=== PATIENT | female | born 1930 | race Hispanic/Latino ===

== ENCOUNTER 2017-09-30 17:25 | Inpatient (IN) | payer BC, MEDICARE ==
[2017-09-30 17:25] VITALS: PULSE 64; BMI 32.6
--- NOTE | 2017-09-30 18:23 | ED PDOC ---
Arrival/HPI - General Historian: Patient, Family EM Caveat: Dementia - History of Present Illness Time/Duration: < week Symptom Onset: Sudden Symptom Course: Unchanged Quality: Other Severity Level: Moderate <Neal Whatley - Last Filed: 09/30/17 18:33> <Ignacio Martinez - Last Filed: 09/30/17 18:49> - General Chief Complaint: GI Problem Time Seen by Provider: 09/30/17 17:26 - History of Present Illness Narrative History of Present Illness (Text): 09/30/17 18:22 This is an 87 yo female with past medical hx of HTN, pulmonary hypertension, renal cancer, mitral regurgitation, dementia, chronic constipation, hemorrhoids , presenting with chief complaint of bloody stools. This has been going for 3 days. Pt is on blood thinners. She is on pradaxa. Pt is accompanied with son and daughter who provide most of hx since pt has some dementia. This has never happened before. Reports blood is light red in color, not very voluminous, does not fill toilet bowl. It is with fully formed stool, no diarrhea. It has been happening every time pt goes to have BM. Of note, pt has chronic constipation secondary to narrowed rectum and has had sx in past to dilate rectum. In past few days, pt has used numerous suppositories. Pt currently feels well and has no complaints. Family did take pt in to see PMD Dr. Rizo earlier today who performed rectal exam. Exam showed black tarry stools. PMH: HTN, dementia, renal cancer, chronic constipation, mitral regurg, hemorrhoids PSH: rectal dilation Allergies: sulfa FH: non contributory Home meds: digoxin, lasix, pradaxa, terazosin, potassium, edarbi, nisoldipine, namenda, citalopram. Social hx: former smoker. denies drinking and drug use. 09/30/17 18:23 09/30/17 18:33 (Neal Whatley) Past Medical History - Provider Review Nursing Documentation Reviewed: Yes - Travel History Have you recently traveled outside [place] w/in the past 3 mons?: No - Tetanus Immunization Tetanus Immunization: Unknown - Reproductive Menopause: Yes - Cardiac Hx Cardiac Disorders: Yes (enlarged heart) Hx Cardiac Arrhythmia: Yes Hx Heart Murmur: Yes Hx Hypertension: Yes - Pulmonary Hx Respiratory Disorders: No - Neurological Hx Neurological Disorder: Yes Hx Dementia: Yes Hx Transient Ischemic Attacks (TIA): Yes - HEENT Hx HEENT Disorder: Yes Hx Blind: Yes - Renal Other/Comment: cyst on left kidney. Only has left kidney - Endocrine/Metabolic Hx Endocrine Disorders: No - Hematological/Oncological Hx Anemia: Yes Hx Cancer: Yes (kidney) - Integumentary Hx Dermatological Disorder: No - Musculoskeletal/Rheumatological Hx Musculoskeletal Disorders: (carpal tunnel both hands) Hx Arthritis: Yes (both legs, left more than right) Hx Falls: No - Gastrointestinal Hx Constipation: Yes (had 3 hemorrhoid sx's which left pt with small anus, needs to take laxative) Hx Diverticulitis: Yes Hx Hemorrhoids: Yes - Genitourinary/Gynecological Hx Genitourinary Disorders: Yes (bladder problems since a teenager) - Psychiatric Hx Anxiety: Yes Hx Depression: Yes Hx Substance Use: No - Surgical History Hx Appendectomy: Yes Other/Comment: right kidney removed. - Suicidal Assessment Feels Threatened In Home Enviroment: No <Neal Whatley - Last Filed: 09/30/17 18:33> Family/Social History - Physician Review Nursing Documentation Reviewed: Yes Family/Social History: Unknown Family HX Smoking Status: Former Smoker Hx Alcohol Use: No Hx Substance Use: No <Neal Whatley - Last Filed: 09/30/17 18:33> Allergies/Home Meds <Neal Whatley - Last Filed: 09/30/17 18:33> <Ignacio Martinez - Last Filed: 09/30/17 18:49> Allergies/Adverse Reactions: Allergies Sulfa (Sulfonamide Antibiotics) Allergy (Verified 09/30/17 17:57) SWELLING Home Medications: Home Meds Medication Instructions Recorded Confirmed Azilsartan Medoxomil [Edarbi] 80 mg PO DAILY 09/30/17 09/30/17 Citalopram Hydrobromide 20 mg PO DAILY 09/30/17 09/30/17 [Citalopram HBr] Dabigatran [Pradaxa] 150 mg PO BID 09/30/17 09/30/17 Digoxin [Digitek] 125 mcg PO DAILY 09/30/17 09/30/17 Furosemide [Lasix] 20 mg PO BID 09/30/17 09/30/17 Memantine [Namenda] 21 mg PO DAILY 09/30/17 09/30/17 Nisoldipine 8.5 mg PO DAILY 09/30/17 09/30/17 Potassium Chloride [Klor-Con 10] 10 meq PO DAILY 09/30/17 09/30/17 Terazosin [Hytrin] 2 mg PO TID 09/30/17 09/30/17 Review of Systems - Review of Systems Constitutional: absent: Weight Change, Fevers, Night Sweats Eyes: absent: Vision Changes, Photophobia ENT: absent: Hearing Changes, Tinnitus Respiratory: absent: SOB, Cough Cardiovascular: absent: Chest Pain, Palpitations Gastrointestinal: Stool Changes, Constipation. absent: Abdominal Pain Genitourinary Female: absent: Dysuria, Frequency Musculoskeletal: absent: Arthralgias, Back Pain Skin: absent: Rash, Pruritis Neurological: Dizziness. absent: Headache Endocrine: absent: Diaphoresis, Polyuria Hemo/Lymphatic: absent: Adenopathy, Easy Bleeding Psychiatric: absent: Anxiety, Depression <Neal Whatley - Last Filed: 09/30/17 18:33> Physical Exam Vital Signs Reviewed: Yes Mental Status: No: Alert and Oriented X 3 (AO x 2) - Systems Exam Head: Present: Atraumatic, Normocephalic Pupils: Present: PERRL Extroacular Muscles: Present: EOMI Neck: Present: Normal Range of Motion. No: JVD Respiratory/Chest: Present: Clear to Auscultation. No: Respiratory Distress Cardiovascular: Present: Murmurs, Normal S1, S2 Abdomen: No: Tenderness, Distention, Peritoneal Signs, Rebound, Guarding Rectal: Present: Occult Blood (positive stool guaiac). No: Hemorrhoids Upper Extremity: Present: Normal Inspection. No: Cyanosis, Edema Lower Extremity: Present: Normal Inspection. No: Edema Neurological: Present: CN II-XII Intact, Speech Normal Skin: Present: Warm, Dry Psychiatric: Present: Alert. No: Oriented x 3 <Neal Whatley - Last Filed: 09/30/17 18:33> Vital Signs Temp Pulse Resp BP Pulse Ox 09/30/17 17:46 97.6 F 60 18 149/67 97 Medical Decision Making <Neal Whatley - Last Filed: 09/30/17 18:33> <Ignacio Martinez - Last Filed: 09/30/17 18:49> ED Course and Treatment: 09/30/17 18:36 This is a 87 yo female presenting with bloody stool/melena -differential includes lower GI bleed, use of blood thinners -will order CBC, CMP -EKG -PT/PTT -protonix IV -NS 80 cc/hr -NPO -reassess (Neal Whatley) 09/30/17 18:39 87 yo female with presents with bloody stools. Agree with resident history and physical, assessment and plan. -- Labs -- EKG -- IVF Rectal performed by resident with my supervisions. Cask Maker Cassia. Guiack positive. No hemorrohids. Black stools. Prior to arrival patient was endorsed to me by Dr. Montes from Dr. Rizo's office. Patient's GI doctor does not come to [place]. Will sign out to Dr. Hung to f/u labs, reevaluate and disposition. (Ignacio Martinez) - Medication Orders Current Medication Orders: Sodium Chloride (Sodium Chloride 0.9%) 1,000 mls @ 80 mls/hr IV .[id number] CARLO Discontinued Medications Pantoprazole Sodium (Protonix Inj) 40 mg IVP STAT STA Stop: 09/30/17 18:19 Disposition/Present on Arrival - Present on Arrival History of DVT/PE: No History of Uncontrolled Diabetes: No Urinary Catheter: No History of Decub. Ulcer: No History Surgical Site Infection Following: None <Neal Whatley - Last Filed: 09/30/17 18:33> - Present on Arrival Any Indicators Present on Arrival: No - Disposition Have Diagnosis and Disposition been Completed?: No Disposition Time: 18:45 Patient Plan: Admission <Ignacio Martinez - Last Filed: 09/30/17 18:49> - Disposition Diagnosis: GI bleed Disposition: HOSPITALIZED Condition: FAIR Forms: [employer] (Hebrew)
[2017-09-30] MEDS ORDERED: Sodium Chloride 0.9% 1,000 ML IV SCH ×2 (18:30→21:45)
[2017-09-30 18:57] LABS: BASO # 0.05 K/mm3 (0.0-2.0); BASO % 0.9 % (0.0-3.0); EOS # 0.1 (0.0-0.7); EOS % 2.4 % (1.5-5.0); GRAN # 3.65 (1.4-6.5); GRAN % 66.6 % (50.0-68.0); HEMATOCRIT 31.4 % (36.0-48.0); LYMPH # 1.2 (1.2-3.4); MEAN CELL VOLUME 88.7 fl (80.0-105.0); MEAN CORPUSCULAR HEMOGLOBIN 28.2 pg (25.0-35.0); MEAN CORPUSCULAR HGB CONC 31.8 g/dl (31.0-37.0); MEAN PLATELET VOLUME 10.3 fl (7.0-11.0); MONO # 0.5 (0.1-0.6); MONO % 9.1 % (1.0-6.0); RED CELL DISTRIBUTION WIDTH 13.8 % (11.5-14.5); WHITE BLOOD COUNT 5.5 10^3/ul (4.5-11.0)
[2017-09-30 19:18] LABS: ALB/GLOB RATIO 1.2 (1.1-1.8); ALKALINE PHOSPHATASE 74 U/L (38-126); ALT/SGPT 23 U/L (7-56); AST/SGOT 34 U/L (14-36); BILIRUBIN,TOTAL 0.8 mg/dL (0.2-1.3); BLOOD UREA NITROGEN 11 mg/dL (7-21); CALCIUM 9.3 mg/dL (8.4-10.5); CARBON DIOXIDE 27 mmol/L (21-33); CHLORIDE 102 mmol/L (98-107); GFR AFRICAN-AMERICAN > 60; GLUCOSE,RANDOM 97 mg/dL (70-110); POTASSIUM 3.8 mmol/L (3.6-5.0); SODIUM 136 mmol/L (132-148); TOTAL PROTEIN 6.9 g/dL (5.8-8.3)
[2017-09-30 19:24] LABS: INR 1.85 (0.93-1.08); PARTIAL THROMBOPLASTIN TIME 61.3 Seconds (25.1-36.5)
--- NOTE | 2017-09-30 22:29 | CP.PCM.HP ---
History of Present Illness - History of Present Illness History of Present Illness: Becka Rivera DO PGY1 - Internal Medicine H&P for Dr. Llanos CC: Rectal bleeding and frequent stools x 3-4 days HPI: 87 yo F with PMH of HTN, pulmonary HTN, renal CA s/p R nephrectomy, mitral regurgitation, atrial fibrillation, TIA, dementia, hemorrhoids s/p hemorrhoidectomy, and chronic constipation. Presents complaining of blood in her stools, black stools, and frequent urge to defecate. She was sent to the ER earlier today by her PMD Dr. Rizo, who noted black tarry stools on exam in the office. Patient, and family at bedside, report bright red blood mixed in stool for the past 3-4 days, black stools for the same duration. She denies any abdominal pain, shortness of breath, chest pain, nausea, vomiting. She does report anorexia, frequent urge to defecate (>100 times per day), loose and occasionally waterry stools, sensation of rectal fullness and constipation. She denies weight loss, night sweats, dyspepsia, early satiety. 12 point ROS was obtained and was negative except as in HPI PMH: As above PSH: Right nephrectomy, appendectomy, hemorrhoidectomy 30 years ago, Rectal scar /adhesion excision 20 years ago, rectal dilation (every 1-2 weeks for the past couple months) Soc: Prior smoker; denies alcohol or illicits All: Sulfa Patient sees a exhaust and muffler fitter at [facility], but has also seen Dr. Kim in the past. Reports no history of endoscopic evaluation in the past. Present on Admission - Present on Admission Any Indicators Present on Admission: No Past Patient History - Tetanus Immunizations Tetanus Immunization: Unknown - Past Social History Smoking Status: Former Smoker - CARDIAC Hx Cardiac Disorders: Yes (enlarged heart) Hx Cardia Arrhythmia: Yes Hx Heart Murmur: Yes Hx Hypertension: Yes - PULMONARY Hx Respiratory Disorders: No - NEUROLOGICAL Hx Neurological Disorder: Yes Hx Dementia: Yes Hx Transient Ischemic Attacks (TIA): Yes - HEENT Hx HEENT Problems: Yes Hx Blind: Yes - RENAL Other/Comment: cyst on left kidney. Only has left kidney - ENDOCRINE/METABOLIC Hx Endocrine Disorders: No - HEMATOLOGICAL/ONCOLOGICAL Hx Anemia: Yes Hx Cancer: Yes (kidney) - INTEGUMENTARY Hx Dermatological Problems: No - MUSCULOSKELETAL/RHEUMATOLOGICAL Hx Musculoskeletal Disorders: (carpal tunnel both hands) Hx Arthritis: Yes (both legs, left more than right) Hx Falls: No - GASTROINTESTINAL Hx Constipation: Yes (had 3 hemorrhoid sx's which left pt with small anus, needs to take laxative) Hx Diverticulitis: Yes Hx Hemorrhoids: Yes - GENITOURINARY/GYNECOLOGICAL Hx Genitourinary Disorders: Yes (bladder problems since a teenager) - PSYCHIATRIC Hx Anxiety: Yes Hx Depression: Yes Hx Substance Use: No - SURGICAL HISTORY Hx Appendectomy: Yes Other/Comment: right kidney removed. Meds Allergies/Adverse Reactions: Allergies Allergy/AdvReac Type Severity Reaction Status Date / Time Sulfa (Sulfonamide Allergy SWELLING Verified 09/30/17 17:57 Antibiotics) Physical Exam - Constitutional Appears: Non-toxic, No Acute Distress, Confused (baseline dementia) - Head Exam Head Exam: ATRAUMATIC, NORMOCEPHALIC - Eye Exam Eye Exam: EOMI, Normal appearance, PERRL Additional comments: No conjunctival pallor - ENT Exam ENT Exam: Mucous Membranes Dry, Normal Oropharynx - Neck Exam Neck exam: Positive for: Normal Inspection - Respiratory Exam Respiratory Exam: Clear to Auscultation Bilateral, NORMAL BREATHING PATTERN - Cardiovascular Exam Cardiovascular Exam: Bradycardia, Irregular Rhythm, JVD (1-2cm in semi- recumbent position), +S1, +S2 - GI/Abdominal Exam GI & Abdominal Exam: Normal Bowel Sounds, Soft. absent: Distended, Firm, Guarding, Organomegaly, Rebound, Rigid, Tenderness - Extremities Exam Extremities exam: Positive for: calf tenderness (Minimal, L>R), pedal edema (3+ to knees, L>R) - Neurological Exam Neurological exam: Alert, Oriented x3 - Psychiatric Exam Psychiatric exam: Normal Affect, Normal Mood - Skin Skin Exam: Dry, Intact, Normal Color Results - Vital Signs Recent Vital Signs: Last Vital Signs Temp 97.6 F 09/30/17 17:46 Pulse 60 09/30/17 17:46 Resp 18 09/30/17 17:46 BP 149/67 09/30/17 17:46 Pulse Ox 97 09/30/17 17:46 - Labs Result Diagrams: 09/30/17 18:45 09/30/17 18:45 Assessment & Plan - Assessment and Plan (Free Text) Assessment: 87 yo F with PMH of HTN, pulmonary HTN, renal CA s/p R nephrectomy, mitral regurgitation, atrial fibrillation, TIA, dementia, hemorrhoids s/p hemorrhoidectomy, and chronic constipation. Presents complaining of blood in her stools, black stools, and frequent urge to defecate. Plan 1. Hematochezia and Melena - Likely 2/2 UGIB in patient chronically on Pradaxa - H/H currently stable compared to baseline - Hemodynamically stable - ER staff documented findings of GUIAC positive stool and melanotic stools on rectal exam; no mention of impaction - Patient had BM in commode bedside, appeared melanotic - Patient denies any abdominal pain at present; no B-symptoms - Recheck CBC Q6 to monitor for acute blood loss - Type and screen - NPO except meds - Start Protonix 40mg IV BID; received 40mg IV in ER - IVF hydration NS@60cc/hr - Hold Pradaxa pending repeat CBC and GI consult - Consult GI (Dr. Kim), appreciate recs 2. Frequent urge to defecate - Patient has had frequent urge to defecate (currently >100x per day) progressively worsened over the past month, rarely ever actually having a bowel movement; had three small loose bowel movements while in ER - Likely 2/2 GIB as blood in GI tract is cathartic - Patient reportedly takes miralax and dulcolax daily, but hasn't been taking those for the past month. Patient did use glycerin suppositories 50 times in the past three days, with minimal improvement in symptoms for a few minutes - Ordered 2-view abdomen XR to r/o impaction, partial obstruction, or other evident anatomical/structural pathologies 3. Lower extremity edema - Per daughter, patient always has swelling in her legs, but left leg appears slightly worse than usual; patient reports mild tenderness to palpation of bilateral calves - Unlikely to have DVT as patient is on Pradaxa chronically for afib and history of TIA - Ordered LE venous duplex to r/o DVT 4. h/o HTN - BP currently stable - Resume home meds 5. Atrial Fibrillation - Patient with irregular rhythm on exam - Takes pradaxa for anticoagulation; CHADSVASC score 6 - Currently rate controlled 6. h/o dementia - Baseline forgefulness and occasional confusion - Resume home meds GI Ppx: IV Protonix, therapeutic, as above DVT Ppx: Patient is chronically on Pradaxa Patient discussed and reviewed with attending
[2017-10-01 00:26] LABS: BASO # 0.03 K/mm3 (0.0-2.0); BASO % 0.6 % (0.0-3.0); EOS # 0.2 (0.0-0.7); EOS % 3.2 % (1.5-5.0); GRAN # 3.5 (1.4-6.5); GRAN % 66.1 % (50.0-68.0); HEMATOCRIT 29.5 % (36.0-48.0); LYMPH # 1.1 (1.2-3.4); LYMPH % 20.8 % (22.0-35.0); MEAN CELL VOLUME 88.3 fl (80.0-105.0); MEAN CORPUSCULAR HEMOGLOBIN 27.8 pg (25.0-35.0); MEAN CORPUSCULAR HGB CONC 31.5 g/dl (31.0-37.0); MEAN PLATELET VOLUME 9.9 fl (7.0-11.0); MONO # 0.5 (0.1-0.6); MONO % 9.3 % (1.0-6.0); RED CELL DISTRIBUTION WIDTH 13.8 % (11.5-14.5); WHITE BLOOD COUNT 5.3 10^3/ul (4.5-11.0)
[2017-10-01 01:16] VITALS: RESP 20
[2017-10-01 06:43] LABS: INR 1.59 (0.93-1.08); PARTIAL THROMBOPLASTIN TIME 52.4 Seconds (25.1-36.5)
[2017-10-01 06:44] LABS: BASO # 0.04 K/mm3 (0.0-2.0); BASO % 0.8 % (0.0-3.0); EOS # 0.2 (0.0-0.7); EOS % 2.9 % (1.5-5.0); GRAN # 3.22 (1.4-6.5); GRAN % 63.1 % (50.0-68.0); LYMPH # 1.1 (1.2-3.4); LYMPH % 21.8 % (22.0-35.0); MEAN CELL VOLUME 88.8 fl (80.0-105.0); MEAN CORPUSCULAR HEMOGLOBIN 27.5 pg (25.0-35.0); MEAN PLATELET VOLUME 10.2 fl (7.0-11.0); MONO # 0.6 (0.1-0.6); MONO % 11.4 % (1.0-6.0); RED CELL DISTRIBUTION WIDTH 13.9 % (11.5-14.5); WHITE BLOOD COUNT 5.1 10^3/ul (4.5-11.0)
[2017-10-01 08:26] LABS: ALB/GLOB RATIO 1.1 (1.1-1.8); ALKALINE PHOSPHATASE 70 U/L (38-126); ALT/SGPT 25 U/L (7-56); AST/SGOT 22 U/L (14-36); BILIRUBIN,TOTAL 0.8 mg/dL (0.2-1.3); BLOOD UREA NITROGEN 10 mg/dL (7-21); CALCIUM 9.3 mg/dL (8.4-10.5); CARBON DIOXIDE 26 mmol/L (21-33); CHLORIDE 105 mmol/L (98-107); GFR AFRICAN-AMERICAN > 60; GLUCOSE,RANDOM 84 mg/dL (70-110); MAGNESIUM 2.3 mg/dL (1.7-2.2); PHOSPHOROUS 2.5 mg/dL (2.5-4.5); POTASSIUM 3.8 mmol/L (3.6-5.0); SODIUM 140 mmol/L (132-148); TOTAL PROTEIN 6.7 g/dL (5.8-8.3)
[2017-10-01] MEDS ORDERED: Magnesium Citrate Oral SOL (300 ml) PO ONE (09:13)
[2017-10-01 09:42] VITALS: BP 129/60; PULSE 52; TEMP 97.2; O2SAT 98
[2017-10-01] MEDS ORDERED: POLYETHYLENE GLYCOL 3350 17 GM/Dose PACKET PO SCH (10:00)
[2017-10-01] MEDS ORDERED: AZILSARTAN MEDOXOMIL 80 MG PO SCH (10:00)
[2017-10-01] MEDS ORDERED: Potassium Chloride 10 mEq ER Tab PO SCH (10:00)
[2017-10-01] MEDS ORDERED: TERAZOSIN 2 MG PO SCH (10:00)
[2017-10-01] MEDS ORDERED: NISOLDIPINE 8.5 MG PO SCH (10:00)
--- NOTE | 2017-10-01 10:37 | RAD ---
HISTORY: fecal impaction COMPARISON: No prior. FINDINGS: BOWEL: Normal. No obstruction. No free air. BONES: Normal. OTHER FINDINGS: None. IMPRESSION: No active disease.
--- NOTE | 2017-10-01 12:53 | CON ---
DATE: 10/01/2017 GASTROENTEROLOGY CONSULTATION REQUESTING PHYSICIAN: Dr. Rizo REASON FOR CONSULTATION: I have been asked to see this 87-year-old female who is admitted to the hospital for rectal bleeding. The patient apparently has had some blood streaked bowel movements for the last 3 days. She is on Pradaxa for atrial fibrillation. The patient has a history of dementia and is a poor historian. History is obtained from the medical records. The patient apparently has a history of chronic constipation as well as a an anal stricture requiring dilatation in the past. The patient apparently has had chronic constipation requiring suppositories. PAST MEDICAL HISTORY: Notable for atrial fibrillation, on Pradaxa, dementia, hypertension, chronic constipation with anal stricture, mitral regurgitation, pulmonary hypertension, renal cancer. PAST SURGICAL HISTORY: Notable for partial nephrectomy. The patient also has had hemorrhoidectomy. SOCIAL HISTORY: She denies cigarette smoking and alcohol use. FAMILY HISTORY: Noncontributory. REVIEW OF SYSTEMS: 14-point review of systems is notable for rectal bleeding and constipation. PHYSICAL EXAMINATION: GENERAL: Well-developed female lying in bed, in no acute distress. She is confused but pleasant. VITAL SIGNS: Reveal temperature of 97.2, blood pressure 129/60, heart rate of 52. HEENT: Reveal sclerae to be white. Conjunctivae are pink. NECK: Supple. CHEST: Reveal lungs to be clear. HEART: Exam reveals an irregularly irregular rate. ABDOMEN: Soft, nontender. EXTREMITIES: Show no edema. RECTAL: Shows a an anal stricture with a soft fecal impaction. She has internal hemorrhoids. There is no mass. There is no blood. Stool is dark brown and non melanotic. HOME MEDICATIONS: Include Hytrin, potassium chloride, nisoldipine, Namenda, Lasix, digoxin, Pradaxa, citalopram, and Edarbi. LABORATORY DATA: Reveal hemoglobin at 9.6, this has been stable over 24 hours. Chemistries reveal BUN 10, creatinine 1, AST, ALT, alk phos were all normal. IMPRESSION: An 87-year-old female admitted to the hospital with rectal bleeding, on Pradaxa. My rectal exam shows a chronic anal stricture with soft fecal impaction and internal hemorrhoids. I did not see any bleeding. RECOMMENDATIONS: 1. We will request a flat plate of the abdomen to check for fecal impaction. 2. I have ordered citrate of magnesia 10 ounces p.o. now. 3. MiraLax 17 g three times a day 4. Advance diet. 5. Resume Pradaxa if the patient has a catharsis, can be discharged home and follow up with her own lens generating machine tender. Connor Kim MD
--- NOTE | 2017-10-01 13:30 | CP.PCM.DIS ---
Provider - Provider Date of Admission: 09/30/17 20:09 Attending physician: Connor Rizo MD Primary care physician: Sallie Consults: GI Time Spent in preparation of Discharge (in minutes): 40 Hospital Course - Lab Results Lab Results: Most Recent Lab Values WBC 5.1 10^3/ul (4.5-11.0) 10/01/17 05:20 RBC 3.49 10^6/uL (3.5-6.1) L 10/01/17 05:20 Hgb 9.6 g/dL (12.0-16.0) L 10/01/17 05:20 Hct 31.0 % (36.0-48.0) L 10/01/17 05:20 MCV 88.8 fl (80.0-105.0) 10/01/17 05:20 MCH 27.5 pg (25.0-35.0) 10/01/17 05:20 MCHC 31.0 g/dl (31.0-37.0) 10/01/17 05:20 RDW 13.9 % (11.5-14.5) 10/01/17 05:20 Plt Count 275 10^3/uL (120.0-450.0) 10/01/17 05:20 MPV 10.2 fl (7.0-11.0) 10/01/17 05:20 Gran % 63.1 % (50.0-68.0) 10/01/17 05:20 Lymph % (Auto) 21.8 % (22.0-35.0) L 10/01/17 05:20 Major % (Auto) 11.4 % (1.0-6.0) H 10/01/17 05:20 Eos % (Auto) 2.9 % (1.5-5.0) 10/01/17 05:20 Baso % (Auto) 0.8 % (0.0-3.0) 10/01/17 05:20 Gran # 3.22 (1.4-6.5) 10/01/17 05:20 Lymph # 1.1 (1.2-3.4) L 10/01/17 05:20 Major # 0.6 (0.1-0.6) 10/01/17 05:20 Eos # 0.2 (0.0-0.7) 10/01/17 05:20 Baso # 0.04 K/mm3 (0.0-2.0) 10/01/17 05:20 PT 17.7 SECONDS (9.4-12.5) H 10/01/17 05:20 INR 1.59 (0.93-1.08) H 10/01/17 05:20 APTT 52.4 Seconds (25.1-36.5) H 10/01/17 05:20 Sodium 140 mmol/L (132-148) 10/01/17 05:20 Potassium 3.8 mmol/L (3.6-5.0) 10/01/17 05:20 Chloride 105 mmol/L (98-107) 10/01/17 05:20 Carbon Dioxide 26 mmol/L (21-33) 10/01/17 05:20 Anion Gap 13 (10-20) 10/01/17 05:20 BUN 10 mg/dL (7-21) 10/01/17 05:20 Creatinine 1.0 mg/dl (0.7-1.2) 10/01/17 05:20 Est GFR ( Amer) > 60 10/01/17 05:20 Est GFR (Non-Af Amer) 53 10/01/17 05:20 Random Glucose 84 mg/dL (70-110) 10/01/17 05:20 Calcium 9.3 mg/dL (8.4-10.5) 10/01/17 05:20 Phosphorus 2.5 mg/dL (2.5-4.5) 10/01/17 05:20 Magnesium 2.3 mg/dL (1.7-2.2) H 10/01/17 05:20 Total Bilirubin 0.8 mg/dL (0.2-1.3) 10/01/17 05:20 AST 22 U/L (14-36) 10/01/17 05:20 ALT 25 U/L (7-56) 10/01/17 05:20 Alkaline Phosphatase 70 U/L (38-126) 10/01/17 05:20 Total Protein 6.7 g/dL (5.8-8.3) 10/01/17 05:20 Albumin 3.5 g/dL (3.0-4.8) 10/01/17 05:20 Globulin 3.2 gm/dL 10/01/17 05:20 Albumin/Globulin Ratio 1.1 (1.1-1.8) 10/01/17 05:20 Blood Type O POSITIVE 09/30/17 18:45 Blood Type Confirm O POSITIVE 09/30/17 19:21 Antibody Screen Negative 09/30/17 18:45 BBK History Checked No verified bt 09/30/17 18:45 - Hospital Course Hospital Course: 87 yo F with PMH of HTN, pulmonary HTN, renal CA s/p R nephrectomy, mitral regurgitation, atrial fibrillation, TIA, dementia, hemorrhoids s/p hemorrhoidectomy, and chronic constipation now presents from PMD office with blood in her stools, black stools, and frequent urge to defecate. In the ED basic labwork was done. Pt h/h was 10/31.4 and remained stable. GI was consulted and pt was admitted to the floor for closer observation. Serial CBC was ordered and pt h/h remained stable. GI recommended mag citrate x 1 and Miralax TID for soft fecal impaction. Abd Xray was unremarkable. GI also resumed pt Pradaxa with follow up with her own GI doctor with in 1-2 weeks. Today the patient feels much better. No complaints at this time. Pt denies any alexander, dizziness, f/c, sob, cp, abd pain, n/v/d. Discharge Exam - Head Exam Head Exam: ATRAUMATIC, NORMOCEPHALIC - Eye Exam Eye Exam: EOMI, PERRL - Respiratory Exam Respiratory Exam: Clear to PA & Lateral. absent: Rales, Wheezes - Cardiovascular Exam Cardiovascular Exam: REGULAR RHYTHM, RRR, +S1, +S2 - GI/Abdominal Exam GI & Abdominal Exam: Normal Bowel Sounds, Soft. absent: Tenderness - Neurological Exam Neurological exam: Alert, Oriented x3 - Psychiatric Exam Psychiatric exam: Normal Affect, Normal Mood - Skin Skin Exam: Dry, Intact, Normal Color Discharge Plan - Discharge Medications Prescriptions: Polyethylene Glycol 3350 [Miralax] 17 gm PO TID 30 Days packet - Follow Up Plan Condition: IMPROVED Disposition: HOME/ ROUTINE Patient education suggested?: Yes Instructions: Constipation in Children (DC), Gastrointestinal Bleeding (DC), Rectal Bleeding (DC) Additional Instructions: Follow up with your PMD within 3-5 days. Follow up with your Gastroeneterologist with in next 1-2 weeks. If your symptoms recur come back to the ED. Take your medications as prescribed.
[2017-10-01] MEDS ORDERED: Digoxin 125 mcg (0.125 mg) Tab PO SCH (14:00)
--- NOTE | 2017-10-01 17:38 | CARD ---
APPROVED REPORT EKG Measurement Heart [id number] <Conclusion> Atrial fibrillation with slow Ventricular response Low voltage QRS Borderline ECG
[2017-10-01] MEDS ORDERED: Bisacodyl 5mg EC Tab PO SCH (22:00)
== END 2017-10-01 15:42 | disposition home or self-care (01) | DRG 389 ==
LOC: ED 17:25 → ERH 20:09 → 3RNO 22:38
PROVIDERS: ADMIT Internal Medicine; ATTEND Internal Medicine
DX: K56.41 Fecal impaction (principal); K92.2 Gastrointestinal hemorrhage, unspecified; I27.20 Pulmonary hypertension, unspecified; I48.91 Unspecified atrial fibrillation; I34.0 Nonrheumatic mitral (valve) insufficiency; K64.8 Other hemorrhoids; Z79.01 Long term (current) use of anticoagulants; I10 Essential (primary) hypertension; H54.7 Unspecified visual loss; Z86.73 Personal history of transient ischemic attack (TIA), and cerebral infarction without residual deficits; Z87.891 Personal history of nicotine dependence; Z90.49 Acquired absence of other specified parts of digestive tract; Z90.5 Acquired absence of kidney; Z85.528 Personal history of other malignant neoplasm of kidney; Z79.899 Other long term (current) drug therapy; F03.90 Unspecified dementia, unspecified severity, without behavioral disturbance, psychotic disturbance, mood disturbance, and anxiety; N28.1 Cyst of kidney, acquired; D64.9 Anemia, unspecified; M19.90 Unspecified osteoarthritis, unspecified site; Z87.19 Personal history of other diseases of the digestive system; F41.9 Anxiety disorder, unspecified; F32.89 Other specified depressive episodes; R63.0 Anorexia; Z88.2 Allergy status to sulfonamides

== ENCOUNTER 2018-04-05 14:48 | Inpatient (IN) | payer MEDICARE ==
[2018-04-05 14:49] VITALS: PULSE 64; BMI 32.6
--- NOTE | 2018-04-05 15:51 | ED PDOC ---
Arrival/HPI - General Chief Complaint: Trauma Time Seen by Provider: 04/05/18 14:55 Historian: Patient - History of Present Illness Narrative History of Present Illness (Text): 04/05/18 15:35 A 87 year old male, whose past medical history includes HTN, dementia, renal cancer, chronic constipation, mitral regurg, and hemorrhoids, is accompanied by family and presents to the emergency department complaining of falls x 3. Per family, patient fell 3 times in the past 2 days. Also, it is mentioned patient hit her head x 3 s/p falls. Patient denies any leg pain, shortness of breath, or any other complaints at this time. It is noted patient uses walker/cane, however refuses to ambulate with it at home. PMD: Dr. Rizo Past Medical History - Provider Review Nursing Documentation Reviewed: Yes - Tetanus Immunization Tetanus Immunization: Unknown - Cardiac Hx Cardiac Disorders: Yes Hx Atrial Fibrillation: Yes Hx Cardiac Arrhythmia: Yes Hx Heart Murmur: Yes Hx Hypertension: Yes - Pulmonary Hx Respiratory Disorders: No - Neurological Hx Neurological Disorder: Yes Hx Dementia: Yes Hx Transient Ischemic Attacks (TIA): Yes - HEENT Hx HEENT Disorder: Yes Hx Blind: Yes - Renal Hx Renal Disorder: Yes Other/Comment: cyst on left kidney. Only has left kidney - Endocrine/Metabolic Hx Endocrine Disorders: No - Hematological/Oncological Hx Blood Disorders: Yes Hx Anemia: Yes Hx Cancer: Yes (kidney) - Integumentary Hx Dermatological Disorder: No - Musculoskeletal/Rheumatological Hx Musculoskeletal Disorders: Yes (carpal tunnel both hands) Hx Arthritis: Yes Hx Falls: No - Gastrointestinal Hx Gastrointestinal Disorders: Yes Hx Constipation: Yes Hx Diverticulitis: Yes Hx Hemorrhoids: Yes - Genitourinary/Gynecological Hx Genitourinary Disorders: Yes Other/Comment: OVERACTIVE BLADDER - Psychiatric Hx Psychophysiologic Disorder: Yes Hx Anxiety: Yes Hx Depression: Yes Hx Substance Use: No - Surgical History Hx Appendectomy: Yes Other/Comment: NEPHRECTOMY - Suicidal Assessment Feels Threatened In Home Enviroment: No Family/Social History - Physician Review Nursing Documentation Reviewed: Yes Family/Social History: No Known Family HX Smoking Status: Former Smoker Hx Alcohol Use: No Hx Substance Use: No Allergies/Home Meds Allergies/Adverse Reactions: Allergies Sulfa (Sulfonamide Antibiotics) Allergy (Verified 04/05/18 15:07) SWELLING Home Medications: Home Meds Medication Instructions Recorded Confirmed Azilsartan Medoxomil [Edarbi] 80 mg PO DAILY 09/30/17 04/05/18 Dabigatran [Pradaxa] 75 mg PO BID 09/30/17 04/05/18 Furosemide [Lasix] 20 mg PO QOTHERDAY 09/30/17 04/05/18 Potassium Chloride [Klor-Con 10] 10 meq PO QOTHERDAY 09/30/17 04/05/18 Polyethylene Glycol 3350 [Miralax] 17 gm PO DAILY 04/05/18 04/05/18 Suvorexant [Belsomra] 10 mg PO HS 04/05/18 04/05/18 diaZEpam [Valium] 5 mg PO BID 04/05/18 04/05/18 Review of Systems - Physician Review All systems were reviewed & negative as marked: Yes - Review of Systems Constitutional: Other (falls x 3, head trauma x 3 s/p falls.) Respiratory: absent: SOB Physical Exam Vital Signs Reviewed: Yes Vital Signs Temp Pulse Resp BP Pulse Ox 04/05/18 18:40 99.0 F 140 H 18 168/83 H 95 04/05/18 15:10 98.0 F 66 17 178/68 H 98 04/05/18 14:49 98 F 66 17 178/68 H 98 Temperature: Afebrile Blood Pressure: Hypertensive Pulse: Regular Respiratory Rate: Normal Appearance: Positive for: Well-Appearing Pain Distress: None Mental Status: Positive for: Alert and Oriented X 3 - Systems Exam Head: Present: Atraumatic, Normocephalic Pupils: Present: PERRL Extroacular Muscles: Present: EOMI Conjunctiva: Present: Normal Mouth: Present: Moist Mucous Membranes Neck: Present: Normal Range of Motion Respiratory/Chest: Present: Clear to Auscultation, Good Air Exchange. No: Respiratory Distress, Accessory Muscle Use Cardiovascular: Present: Regular Rate and Rhythm, Normal S1, S2. No: Murmurs Abdomen: No: Tenderness, Distention, Peritoneal Signs Back: Present: Normal Inspection Upper Extremity: Present: Swelling (right hand). No: Cyanosis, Edema Lower Extremity: Present: Normal Inspection. No: Edema Neurological: Present: GCS=15, CN II-XII Intact, Speech Normal Skin: Present: Warm, Dry, Normal Color. No: Rashes Psychiatric: Present: Alert, Oriented x 3, Normal Insight, Normal Concentration Medical Decision Making ED Course and Treatment: 04/05/18 15:40 Impression: 87 year old female complaining of falls x 3 and head trauma x 3. Physical exam shows right hand swelling and bruising. ro metabolic fracture, intracranial bleed. pmd call request chest ct Plan: -- EKG -- Head CT -- Chest CT -- Chest X-ray -- Right Hand X-Ray -- Pelvis X-Ray -- Labs -- Urinalysis -- Reassess and disposition Prior Visits: Notes and results from previous visits were reviewed. Patient was last seen in the emergency department on 09/30/2017 for bloody stools. Patient was admitted. Progress Notes: EKG: Ordered, reviewed, and independently interpreted the EKG. Rate : 55 BPM Rhythm : Atrial flutter. Interpretation : No ST-segment elevations or depressions, no T-wave inversions, normal intervals. Comparison : No previous EKG for comparison. 04/05/2018 17:[address] IMPRESSION: No acute intracranial abnormalities. No significant findings to account for the clinical presentation. Dictator: Ozzie Cao MD 04/05/2018 17:[address] IMPRESSION: No suspicious pulmonary nodules, masses or infiltrates. Cardiomegaly, small pericardial effusion. No acute cardiopulmonary abnormalities. Dictator: Ozzie Cao MD 04/05/2018 17:40 Pelvis X-Ray IMPRESSION: No acute findings related to/accounting for the clinical presentation. Limitations of the current examination. Single view slightly rotated examination. Dictator: Ozzie Cao MD 04/05/2018 17:41 Chest X-ray IMPRESSION: No active disease. Dictator: Ozzie Cao MD 04/05/2018 17:42 Right Hand X-Ray IMPRESSION: No acute findings related to/accounting for the clinical presentation. Dictator: Ozzie Cao MD 04/05/18 20:54 [t sent by dr rizo for multiple falls. imaging neg. dr rizo requests chest ct 2/2 recent (+)xr with nodule. accepted by dr jean baptiste as pt with need PT eval for gait dysfunction. dr rizo paged, no call back for update. - Lab Interpretations Lab Results: 04/05/18 16:06 04/05/18 16:06 Lab Results 04/05/18 16:30: Urine Color Yellow, Urine Appearance Clear, Urine pH 6.5, Ur Specific [place] 1.010, Urine Protein Negative, Urine Glucose (UA) Negative, Urine Ketones Negative, Urine Blood Small H, Urine Nitrate Negative, Urine Bilirubin Negative, Urine Urobilinogen 0.2, Ur Leukocyte Esterase Small H, Urine RBC 5 - 10, Urine WBC 5 - 10, Ur Epithelial Cells 4 - 5, Urine Bacteria Mod 04/05/18 16:06: Sodium 143, Potassium 4.0, Chloride 103, Carbon Dioxide 29, Anion Gap 15, BUN 12, Creatinine 1.1, Est GFR ( Amer) 57, Est GFR (Non- Af Amer) 47, Random Glucose 94, Calcium 10.3, Magnesium 2.3 H, Total Bilirubin 0.3, AST 19, ALT 21, Alkaline Phosphatase 114, Lactate Dehydrogenase 404, Total Creatine Kinase 53, Troponin I 0.02, Total Protein 8.1, Albumin 4.2, Globulin 3.9, Albumin/Globulin Ratio 1.1 04/05/18 16:06: PT 17.4 H, INR 1.51 H, APTT 60.7 H 04/05/18 16:06: WBC 6.1, RBC 4.48, Hgb 13.0 D, Hct 39.5, MCV 88.2, MCH 29.0, MCHC 32.9, RDW 14.4, Plt Count 247, MPV 10.7, Gran % 64.6, Lymph % (Auto) 22.9, Wallace % (Auto) 9.4 H, Eos % (Auto) 2.3, Baso % (Auto) 0.8, Gran # 3.91, Lymph # ( Auto) 1.4, Wallace # (Auto) 0.6, Eos # (Auto) 0.1, Baso # (Auto) 0.05 I have reviewed the lab results: Yes - RAD Interpretation Radiology Orders: 04/05/18 15:35 HEAD W/O CONTRAST [CT] Stat CHEST PORTABLE [RAD] Stat 04/05/18 15:38 PELVIS ONE VIEW [RAD] Stat 04/05/18 15:39 HAND RIGHT 3 VIEWS [RAD] Stat 04/05/18 15:40 CHEST W/O CONTRAST [CT] Stat - Scribe Statement The provider has reviewed the documentation as recorded by the Annetta Love Provider Scribe Attestation: All medical record entries made by the Scribe were at my direction and personally dictated by me. I have reviewed the chart and agree that the record accurately reflects my personal performance of the history, physical exam, medical decision making, and the department course for this patient. I have also personally directed, reviewed, and agree with the discharge instructions and disposition. Disposition/Present on Arrival - Present on Arrival Any Indicators Present on Arrival: No History of DVT/PE: No History of Uncontrolled Diabetes: No Urinary Catheter: No History of Decub. Ulcer: No History Surgical Site Infection Following: None - Disposition Have Diagnosis and Disposition been Completed?: Yes Diagnosis: Multiple falls, Head injury Disposition: HOSPITALIZED Disposition Time: 20:56 Patient Problems: Current Active Problems Problem Status Onset Head injury Acute Multiple falls Acute Condition: STABLE
[2018-04-05 16:13] LABS: BASO # 0.05 K/mm3 (0.0-2.0); BASO % 0.8 % (0.0-3.0); EOS # 0.1 (0.0-0.7); EOS % 2.3 % (1.5-5.0); GRAN # 3.91 (1.4-6.5); GRAN % 64.6 % (50.0-68.0); LYMPH # 1.4 (1.2-3.4); LYMPH % 22.9 % (22.0-35.0); MEAN CELL VOLUME 88.2 fl (80.0-105.0); MEAN CORPUSCULAR HGB CONC 32.9 g/dl (31.0-37.0); MEAN PLATELET VOLUME 10.7 fl (7.0-11.0); MONO # 0.6 (0.1-0.6); MONO % 9.4 % (1.0-6.0); RBC 4.48 10^6/uL (3.5-6.1); RED CELL DISTRIBUTION WIDTH 14.4 % (11.5-14.5); WHITE BLOOD COUNT 6.1 10^3/ul (4.5-11.0)
[2018-04-05 16:24] LABS: ALB/GLOB RATIO 1.1 (1.1-1.8); ALBUMIN 4.2 g/dL (3.0-4.8); CALCIUM 10.3 mg/dL (8.4-10.5)
[2018-04-05 16:34] LABS: TROPONIN I 0.02 ng/mL
[2018-04-05 16:36] LABS: INR 1.51 (0.93-1.08); PROTHROMBIN TIME 17.4 SECONDS (9.4-12.5)
[2018-04-05 16:37] LABS: PARTIAL THROMBOPLASTIN TIME 60.7 Seconds (25.1-36.5)
[2018-04-05 16:40] LABS: PH,URINE 6.5 (4.7-8.0); URINE BILIRUBIN NEGATIVE (NEGATIVE); URINE BLOOD SMALL (NEGATIVE); URINE GLUCOSE (UA) NEGATIVE (NEGATIVE); URINE LEUKOCYTE ESTERASE SMALL Leu/uL (NEGATIVE); URINE PROTEIN NEGATIVE mg/dL (<30 mg/dL); URINE UROBILINOGEN 0.2 E.U./dL (<1 E.U./dL)
[2018-04-05 16:41] LABS: URINE APPEARANCE CLEAR (CLEAR); URINE COLOR YELLOW (YELLOW)
[2018-04-05 16:51] LABS: URINE BACTERIA MOD (NEG)
--- NOTE | 2018-04-05 17:37 | CT ---
PROCEDURE: CT HEAD WITHOUT CONTRAST. HISTORY: fall COMPARISON: None available. TECHNIQUE: Axial computed tomography images were obtained through the head/brain without intravenous contrast. Coronal and sagittal reconstructed images. Radiation dose: Total exam DLP = 978.29 mGy-cm. This CT exam was performed using one or more of the following dose reduction techniques: Automated exposure control, adjustment of the mA and/or kV according to patient size, and/or use of iterative reconstruction technique. FINDINGS: HEMORRHAGE: No intracranial hemorrhage. BRAIN: No mass effect or edema. Cortical and cerebellar atrophy, periventricular small vessel disease. VENTRICLES: Unremarkable. No hydrocephalus. CALVARIUM: Unremarkable. PARANASAL SINUSES: Unremarkable as visualized. No significant inflammatory changes. MASTOID AIR CELLS: Unremarkable as visualized. No inflammatory changes. OTHER FINDINGS: None. IMPRESSION: No acute intracranial abnormalities. No significant findings to account for the clinical presentation.
--- NOTE | 2018-04-05 17:41 | CT ---
PROCEDURE: CT Chest without contrast HISTORY: lung nodule COMPARISON: None. TECHNIQUE: Contiguous axial images were obtained through the chest without intravenous contrast enhancement. Sagittal and coronal reconstructions were performed. Radiation dose (DLP): 200.43 mGy-cm. This CT exam was performed using one or more of the following dose reduction techniques: Automated exposure control, adjustment of the mA and/or kV according to patient size, and/or use of iterative reconstruction technique. FINDINGS: LUNGS: Clear lungs. Visualized airway clear. MEDIASTINUM: Unremarkable thoracic aorta. No aneurysm. Marked cardiomegaly. Small pericardial effusion. Dilated main pulmonary artery consistent with pulmonary arterial hypertension. No lymphadenopathy. PLEURA: No pleural fluid. No pneumothorax. BONES: No fracture. No destructive lesion. UPPER ABDOMEN: Grossly unremarkable. OTHER FINDINGS: None. IMPRESSION: No suspicious pulmonary nodules, masses or infiltrates. Cardiomegaly, small pericardial effusion. No acute cardiopulmonary abnormalities.
--- NOTE | 2018-04-05 17:41 | RAD ---
PROCEDURE: Radiographs of the pelvis. HISTORY: fall COMPARISON: None. FINDINGS: BONES: Pelvic Bones: Unremarkable. Hips: Moderate and symmetrical degenerative change. JOINTS: Sacroiliac Joints: Unremarkable. Pubic Symphysis: Unremarkable. OTHER FINDINGS: None. IMPRESSION: No acute findings related to/accounting for the clinical presentation. Limitations of the current examination: Single view slightly rotated examination.
--- NOTE | 2018-04-05 17:43 | RAD ---
HISTORY: fall COMPARISON: No prior. FINDINGS: LUNGS: No active pulmonary disease. No pulmonary nodules or masses identified, a finding confirmed on recent CT scan. Calcified density overlying the right upper lobe resides beyond the confines of the thoracic cavity. PLEURA: No significant pleural effusion identified, no pneumothorax apparent. CARDIOVASCULAR: Cardiomegaly. No evidence of acute, significant cardiovascular disease. OSSEOUS STRUCTURES: No significant abnormalities. VISUALIZED UPPER ABDOMEN: Normal. OTHER FINDINGS: None. IMPRESSION: No active disease.
--- NOTE | 2018-04-05 17:44 | RAD ---
PROCEDURE: Right Hand Radiographs. HISTORY: trauma COMPARISON: None. FINDINGS: BONES: Normal. No fracture. JOINTS: Osteoarthritic changes proximal and distal interphalangeal joint distribution and carpal 1st metacarpal joint. SOFT TISSUES: Normal. OTHER FINDINGS: None. IMPRESSION: No acute findings related to/accounting for the clinical presentation.
[2018-04-05] MEDS ORDERED: SUVOREXANT 10 MG PO SCH (22:00)
--- NOTE | 2018-04-05 22:29 | CP.PCM.HP ---
<Misha Carrillo - Last Filed: 04/05/18 22:37> History of Present Illness - History of Present Illness History of Present Illness: 87 year old female with a past medical history of hypertension, dementia, Atrial fibrillation, TIA, renal carcinoma(s/p nephrectomy), mitral regurgitation and hemorrhoids who was brought into the hospital with her son and daughter for multiple fall over the past two days. Per the daughter at bedside, the patient has had approximately six to seven fall over the past two days. She reports one being seen by the nurses aide and two other ones being seen by her brother. Per the son, the patient cannot stay still at home and will get up without assistance of her walker which she is supposed to use at home. Daughter denies any seizure like activity leading up the falls. ROS was limited due to the patient's current clinical condition. Past medical history: hypertension, dementia, atrial fibrillation, tia, renal carcinoma, mitral regurgitation Medications: Family member states she will bring in list of medications Allergies: Sulfa Past surgical hisotry: denies Social history: Denies. Lives with daughter. Nurses aid helps with ADL's. PMD: Dr. Hickman Geriatrics: Dr. Elizondo H&P information obtained by son and daughter at bedside. Present on Admission - Present on Admission Any Indicators Present on Admission: No Review of Systems - Review of Systems Systems not reviewed;Unavailable: Dementia, Altered Mental Status Past Patient History - Tetanus Immunizations Tetanus Immunization: Unknown - Past Social History Smoking Status: Former Smoker - CARDIAC Hx Cardiac Disorders: Yes Hx Atrial Fibrillation: Yes Hx Cardia Arrhythmia: Yes Hx Heart Murmur: Yes Hx Hypertension: Yes - PULMONARY Hx Respiratory Disorders: No - NEUROLOGICAL Hx Neurological Disorder: Yes Hx Dementia: Yes Hx Transient Ischemic Attacks (TIA): Yes - HEENT Hx HEENT Problems: Yes Hx Blind: Yes - RENAL Hx Chronic Kidney Disease: Yes Other/Comment: cyst on left kidney. Only has left kidney - ENDOCRINE/METABOLIC Hx Endocrine Disorders: No - HEMATOLOGICAL/ONCOLOGICAL Hx Blood Disorders: Yes Hx Anemia: Yes Hx Cancer: Yes (kidney) - INTEGUMENTARY Hx Dermatological Problems: No - MUSCULOSKELETAL/RHEUMATOLOGICAL Hx Musculoskeletal Disorders: Yes (carpal tunnel both hands) Hx Arthritis: Yes Hx Falls: No - GASTROINTESTINAL Hx Gastrointestinal Disorders: Yes Hx Constipation: Yes Hx Diverticulitis: Yes Hx Hemorrhoids: Yes - GENITOURINARY/GYNECOLOGICAL Hx Genitourinary Disorders: Yes Other/Comment: OVERACTIVE BLADDER - PSYCHIATRIC Hx Psychophysiologic Disorder: Yes Hx Anxiety: Yes Hx Depression: Yes Hx Substance Use: No - SURGICAL HISTORY Hx Appendectomy: Yes Other/Comment: NEPHRECTOMY Meds Allergies/Adverse Reactions: Allergies Allergy/AdvReac Type Severity Reaction Status Date / Time Sulfa (Sulfonamide Allergy SWELLING Verified 04/05/18 15:07 Antibiotics) Physical Exam - Head Exam Head Exam: ATRAUMATIC, NORMAL INSPECTION, NORMOCEPHALIC - Eye Exam Eye Exam: EOMI, Normal appearance, PERRL - ENT Exam ENT Exam: Mucous Membranes Moist - Respiratory Exam Respiratory Exam: Clear to Auscultation Bilateral, NORMAL BREATHING PATTERN - Cardiovascular Exam Cardiovascular Exam: REGULAR RHYTHM, +S1, +S2 - GI/Abdominal Exam GI & Abdominal Exam: Normal Bowel Sounds, Soft - Extremities Exam Extremities exam: Positive for: normal inspection. Negative for: full ROM, joint swelling, pedal edema - Neurological Exam Neurological exam: Alert, CN II-XII Intact - Psychiatric Exam Psychiatric exam: Normal Affect, Normal Mood - Skin Skin Exam: Dry, Intact Results - Vital Signs Recent Vital Signs: Last Vital Signs Temp 99.0 F 04/05/18 18:40 Pulse 140 H 04/05/18 18:40 Resp 18 04/05/18 18:40 BP 168/83 H 04/05/18 18:40 Pulse Ox 95 04/05/18 18:40 - Labs Result Diagrams: 04/05/18 16:06 04/05/18 16:06 Assessment & Plan - Assessment and Plan (Free Text) Assessment: 87 year old female with a past medical history of renal cell carcinoma, hypertension, dementia, atrial fibrillation, mitral regurgitation and tia who is being admitted for multiple falls over the past two days. Plan: 1. Multiple falls Head CT: Negative Chest CT: small pericardial effusions Pelvis xray: negative for fracture Chest xray: negative for active disease Right hand xray: negative for fracture. -Witnessed account of six falls over the past two days. -Carotid ultrasound ordered. Will f/u with results -Echocardiogram ordered. Will f/u with results. -Cardiology consulted. Will f/u with results. -Neurology consulted. Will f/u with results. -Orthostatics ordered. Will f/u with results. 2.history of atrial fibrillation -Restart home medications. -Patient is currently rate controlled. Only on anticoagulation at this time. -CHADSVasc score of 6: 9.7% stroke risk yearly. 3.history of hypertension -Restart home medications. PPX -Protonix <Deanne Cox - Last Filed: 04/06/18 02:26> Results - Vital Signs Recent Vital Signs: Last Vital Signs Temp 98.7 F 04/06/18 00:05 Pulse 70 04/06/18 00:05 Resp 14 04/06/18 00:05 BP 147/70 04/06/18 00:05 Pulse Ox 96 04/06/18 00:05 - Labs Result Diagrams: 04/05/18 16:06 04/05/18 16:06 Attending/Attestation - Attestation I have personally seen and examined this patient.: Yes I have fully participated in the care of the patient.: Yes I have reviewed all pertinent clinical information: Yes Notes (Text): 04/06/18 02:25 Agree with documentation and plan
[2018-04-05] MEDS: AZILSARTAN MEDOXOMIL 80 MG PO SCH (23:31)
[2018-04-06 07:12] LABS: BASO # 0.04 K/mm3 (0.0-2.0); BASO % 0.7 % (0.0-3.0); EOS # 0.1 (0.0-0.7); EOS % 2.1 % (1.5-5.0); GRAN # 3.34 (1.4-6.5); HEMOGLOBIN 12.2 g/dL (12.0-16.0); LYMPH # 1.6 (1.2-3.4); LYMPH % 27.6 % (22.0-35.0); MEAN CELL VOLUME 87.4 fl (80.0-105.0); MEAN CORPUSCULAR HEMOGLOBIN 28.6 pg (25.0-35.0); MEAN CORPUSCULAR HGB CONC 32.7 g/dl (31.0-37.0); MONO # 0.6 (0.1-0.6); MONO % 10.6 % (1.0-6.0); RBC 4.27 10^6/uL (3.5-6.1); RED CELL DISTRIBUTION WIDTH 14.5 % (11.5-14.5); WHITE BLOOD COUNT 5.7 10^3/ul (4.5-11.0)
[2018-04-06 07:33] LABS: ALBUMIN 3.8 g/dL (3.0-4.8); ALT/SGPT 24 U/L (7-56); AST/SGOT 20 U/L (14-36); BLOOD UREA NITROGEN 13 mg/dL (7-21); CALCIUM 9.9 mg/dL (8.4-10.5); GFR AFRICAN-AMERICAN > 60; GFR NON-AFRICAN AMERICAN 53
[2018-04-06] MEDS ORDERED: AZILSARTAN MEDOXOMIL 80 MG PO SCH (10:00)
--- NOTE | 2018-04-06 10:08 | CARD ---
APPROVED REPORT EKG Measurement Heart [id number] <Conclusion> Atrial flutter with variable AV block Rightward axis PRWP V 1 - 6, possibly lead placement.
[2018-04-06] MEDS: AZILSARTAN MEDOXOMIL 80 MG PO SCH (10:55)
--- NOTE | 2018-04-06 15:45 | CP.PCM.PN ---
Subjective - Date & Time of Evaluation Date of Evaluation: 04/06/18 Time of Evaluation: 15:42 - Subjective Subjective: Patient seen and examined at bedside. Per nursing no acute events occurred overnight. The patient reports wanting to go home and wanting to leave her bed and walk around .Remainder of ROS unobtainable due to patient's current clinical condition. Objective - Vital Signs/Intake and Output Vital Signs (last 24 hours): Temp Pulse Resp BP Pulse Ox 98.2 F 83 20 157/97 H 96 04/06/18 12:00 04/06/18 14:00 04/06/18 12:00 04/06/18 12:00 04/06/18 06:00 Intake and Output: 04/06/18 04/06/18 06:59 18:59 Intake Total 120 Output Total 0 Balance 120 - Medications Medications: Current Medications Dabigatran (Pradaxa) 75 mg PO BID [facility] PRN Reason: Protocol Last Admin: 04/06/18 10:55 Dose: 75 mg Diazepam (Valium) 2.5 mg PO BID PRN; Protocol PRN Reason: Agitation Furosemide (Lasix) 20 mg PO DAILY [facility] Last Admin: 04/06/18 10:59 Dose: 20 mg Non-Formulary Medication (Azilsartan Medoxomil [Edarbi]) 80 mg PO DAILY [facility] Last Admin: 04/06/18 10:55 Dose: Not Given Suvorexant [Belsomra (] 10 Mg) 10 mg PO HS [facility]LO Pantoprazole Sodium (Protonix Ec Tab) 40 mg PO ACB CARLO - Labs Labs: 04/06/18 06:30 04/06/18 06:30 PT 17.4 SECONDS (9.4-12.5) H 04/05/18 16:06 INR 1.51 (0.93-1.08) H 04/05/18 16:06 APTT 60.7 Seconds (25.1-36.5) H 04/05/18 16:06 - Head Exam Head Exam: ATRAUMATIC, NORMAL INSPECTION, NORMOCEPHALIC - Eye Exam Eye Exam: EOMI, Normal appearance, PERRL Pupil Exam: NORMAL ACCOMODATION - ENT Exam ENT Exam: Mucous Membranes Moist, Normal Oropharynx - Respiratory Exam Respiratory Exam: Clear to Ausculation Bilateral, NORMAL BREATHING PATTERN. absent: Prolonged Expiratory Phase, Respiratory Distress - Cardiovascular Exam Cardiovascular Exam: REGULAR RHYTHM, +S1, +S2 - GI/Abdominal Exam GI & Abdominal Exam: Soft, Normal Bowel Sounds - Back Exam Back Exam: absent: CVA tenderness (L), CVA tenderness (R), paraspinal tenderness - Neurological Exam Neurological Exam: Altered, Awake - Psychiatric Exam Psychiatric exam: Normal Affect, Normal Mood - Skin Skin Exam: Dry, Intact Assessment and Plan - Assessment and Plan (Free Text) Assessment: 87 year old female with a past medical history of renal cell carcinoma, hypertension, dementia, atrial fibrillation, mitral regurgitation and tia who is being admitted for multiple falls over the past two days Plan: 1. Multiple falls -Neurological vs. Cardiac vs. Musculoskeletal origin Head CT: Negative Chest CT: small pericardial effusions Pelvis xray: negative for fracture Chest xray: negative for active disease Orthostatics negative. Echocardiogram taken. Final read pending. Will f/u with results. Right hand xray: negative for fracture. -Witnessed account of six falls over the past two days. -Carotid ultrasound ordered. Will f/u with results -Cardiology consulted. Will f/u with results. -Neurology consulted. Will f/u with results. 2.history of atrial fibrillation -Restart home medications. -Patient is currently rate controlled. Only on anticoagulation at this time. -CHADSVasc score of 6: 9.7% stroke risk yearly. 3.history of hypertension -Restart home medications. PPX -Protonix
--- NOTE | 2018-04-06 20:27 | US ---
PROCEDURE: Bilateral carotid artery duplex ultrasound HISTORY: Carotid stenosis PHYSICIAN(S): Chris Mcclelland MD. TECHNIQUE: Duplex sonography and color-flow Doppler were used to evaluate the carotid bifurcations and limited segments of the vertebral arteries bilaterally. FINDINGS: There is moderate to extensive heterogeneous shadowing plaque noted at the carotid bifurcations bilaterally. The peak systolic velocity in the proximal right internal carotid artery is 78 cm/sec. This corresponds to a 20 to 39% proximal right ICA stenosis. Normal systolic velocities are noted in the proximal right external carotid artery. There is antegrade flow in the right vertebral artery. The origin of the left ICA is obscured by shadowing plaque. There appears to be a jet chest beyond the shadowing. The peak systolic velocity in the proximal left internal carotid artery is 492 cm/sec. The end-diastolic velocity at this position is 123 cm/second. This corresponds to a critical 80-99 percent proximal left ICA stenosis. Normal systolic velocities are noted in the proximal left external carotid artery. There is antegrade flow in the left vertebral artery. IMPRESSION: 1. Critical 80-99 percent proximal left ICA stenosis. The left proximal ICA is obscured by shadowing plaque. Additional imaging with MRA, CTA, or conventional arteriogram should be considered. 2.20 - 39 percent proximal right ICA stenosis. 3. Grade flow in both vertebral arteries.
[2018-04-07] MEDS ORDERED: Metoprolol 1 mg/ml Inj IVP PRN (01:10)
[2018-04-07 06:39] LABS: BASO # 0.04 K/mm3 (0.0-2.0); BASO % 0.4 % (0.0-3.0); EOS % 0.2 % (1.5-5.0); GRAN # 8.19 (1.4-6.5); GRAN % 78.3 % (50.0-68.0); LYMPH # 1.3 (1.2-3.4); LYMPH % 12.8 % (22.0-35.0); MEAN CORPUSCULAR HEMOGLOBIN 28.9 pg (25.0-35.0); MEAN CORPUSCULAR HGB CONC 33.2 g/dl (31.0-37.0); MEAN PLATELET VOLUME 10.8 fl (7.0-11.0); MONO # 0.9 (0.1-0.6); MONO % 8.3 % (1.0-6.0); RBC 4.85 10^6/uL (3.5-6.1); RED CELL DISTRIBUTION WIDTH 14.6 % (11.5-14.5); WHITE BLOOD COUNT 10.5 10^3/ul (4.5-11.0)
[2018-04-07 07:00] LABS: ALBUMIN 4.2 g/dL (3.0-4.8); CALCIUM 10.1 mg/dL (8.4-10.5)
--- NOTE | 2018-04-07 07:03 | CON ---
DATE: 04/06/2018 REQUESTING PHYSICIAN: Dr. Constantino. REASON FOR CONSULTATION: Atrial fibrillation. HISTORY OF PRESENT ILLNESS: This is an 87-year-old woman with history of atrial fibrillation, previously followed by Dr. Cordero in [place] prior to his mcc, admitted after multiple falls at home. She is seen in bed on telemetry. She is seen in the presence of her daughter. She answers questions but does have baseline dementia. According to daughter, she has had 4 to 5 falls within the past several days, and the family has excessive concerns about the potential for injury. She does have a history of hypertension, chronic atrial fibrillation, prior TIA and dementia. There is no reported history of myocardial fraction or congestive heart failure. PAST MEDICAL HISTORY: Her past history is notable for prior nephrectomy for renal cell carcinoma. She also had a questionable TIA in the past. MEDICATIONS: Her medications at home include Edarbi, potassium supplement, Lasix 20 mg daily, MiraLax, Pradaxa 75 mg b.i.d., Valium p.r.n. and a sleep aid. ALLERGIES: SHE REPORTEDLY HAD REACTION TO SULFAS IN THE PAST. SOCIAL HISTORY: She does not smoke or drink. She lives with her family. FAMILY HISTORY: Both parents from age-related illness. REVIEW OF SYSTEMS: The 10-point review of systems is otherwise unremarkable according to her daughter. PHYSICAL EXAMINATION: GENERAL: She is a pleasant appearing, very elderly woman. VITAL SIGNS: Her blood pressure is 156/96, with a pulse of 94, respirations are 16. Her rhythm is irregularly irregular. She is afebrile. HEENT: Normocephalic, atraumatic. NECK: Supple. No JVD noted. CHEST: A few scattered rhonchi heard. HEART: PMI displaced laterally with soft systolic murmur present at the base as well as at the apex. ABDOMEN: Soft, nontender, normoactive bowel sounds. EXTREMITIES: No clubbing, cyanosis or edema. SKIN: Warm and dry. PSYCHIATRIC: Somewhat flat affect. NEUROLOGIC: Oriented to person and year. No gross motor or sensory is appreciable. DIAGNOSTIC DATA: White count 5.7, hemoglobin and hematocrit are 12.2 and 37.3, with a platelet count of 256,000. Potassium 3.6. BUN and creatinine are 13 and 1. TSH 2.59. Electrocardiogram reveals atrial flutter with variable conduction and poor R wave progression. Chest x-ray reveals a large cardiac silhouette with clear lung rubio. IMPRESSION: 1. Chronic atrial fibrillation with controlled rate. Had previously been on Pradaxa; given her frequent falls, the safety of this appears to be questionable at this time. 2. Moderate dementia. 3. Probable mild aortic stenosis as well as some degree of mitral regurgitation. 4. Hypertension, controlled. RECOMMENDATIONS: Neurology evaluation is pending with respect to her right gait instability at the present time. Low-dose Pradaxa can be continued while at bedrest; however, long-term safety of this needs to be assessed. She is not currently on any rate control therapy and likely has some degree of AV node dysfunction. Monitoring for excessive bradycardia or significant pauses for at least 24 hours would be appropriate. In general, conservative management is most appropriate. An echocardiogram has been ordered and will be reviewed. Thank you for this consultation. We are happy to follow along through her hospital course. Glenn Arora MD
[2018-04-07] MEDS: Pantoprazole 40 mg EC Tab PO SCH (08:29)
--- NOTE | 2018-04-07 09:58 | CP.PCM.PN ---
Subjective - Date & Time of Evaluation Date of Evaluation: 04/07/18 Time of Evaluation: 07:00 - Subjective Subjective: Stable on 2R. No CP or SOB. V/S noted. AF 65 - 130 BPM PE: Lungs: clear Cor: irreg S1S2, sys. murmur Abd.: soft Ext.: no edema Neuro.: alert Labs noted: K+= 3.4, CBC OK, TSH NL Echo done. Will review. Objective - Vital Signs/Intake and Output Vital Signs (last 24 hours): Temp Pulse Resp BP Pulse Ox 97.0 F L 94 H 20 158/92 H 97 04/07/18 06:00 04/07/18 06:00 04/07/18 06:00 04/07/18 06:00 04/07/18 06:00 Intake and Output: 04/07/18 04/07/18 06:59 18:59 Intake Total 180 Balance 180 - Medications Medications: Current Medications Carbidopa/Levodopa (Sinemet) 1 tab PO 0700,1200 [facility] Last Admin: 04/07/18 08:29 Dose: 1 tab Dabigatran (Pradaxa) 75 mg PO BID [facility] PRN Reason: Protocol Last Admin: 04/06/18 17:37 Dose: 75 mg Furosemide (Lasix) 20 mg PO DAILY [facility] Last Admin: 04/06/18 10:59 Dose: 20 mg Losartan Potassium (Cozaar) 50 mg PO DAILY [facility] Metoprolol Tartrate (Lopressor) 5 mg IVP Q6 PRN PRN Reason: Systolic Blood Pressure Pantoprazole Sodium (Protonix Ec Tab) 40 mg PO ACB [facility] Last Admin: 04/07/18 08:29 Dose: 40 mg Quetiapine Fumarate (Seroquel) 25 mg PO 1700 [facility] PRN Reason: Protocol - Labs Labs: 04/07/18 05:30 04/07/18 05:30 PT 17.4 SECONDS (9.4-12.5) H 04/05/18 16:06 INR 1.51 (0.93-1.08) H 04/05/18 16:06 APTT 60.7 Seconds (25.1-36.5) H 04/05/18 16:06 Assessment and Plan - Assessment and Plan (Free Text) Assessment: Multiple Falls AF with mod VR off chronotropic meds CVD: critical LICA stenosis, etc. See U/S report. Dementia HBP TIA S/P nephrectomy for renal cell cancer Plan: Will read echo Neuro eval. PO KCL Continue tel for now Continue Pradaxa for now but may d/c at time of d/c b/o fall risk Will follow.
[2018-04-07] MEDS: Potassium Chloride 20 mEq ER Tab PO SCH (11:09)
--- NOTE | 2018-04-07 11:42 | CARD ---
APPROVED REPORT EXAM: Two-dimensional and M-mode echocardiogram with Doppler and color Doppler. Other Information Quality : AverageRhythm : INDICATION Atrial Fibrillation 2D DIMENSIONS Left Atrium (2D)4.7 (1.6-4.0cm)IVSd1.2 (0.7-1.1cm) LVDd4.4 (3.9-5.9cm)LVOT Diameter2.0 (1.8-2.4cm) PWd1.3 (0.7-1.1cm)LVDs2.8 (2.5-4.0cm) FS (%) 35.8 %LVEF (%)65.0 (>50%) M-Mode DIMENSIONS Aortic Root3.00 (2.2-3.7cm)Aortic Cusp Exc.0.90 (1.5-2.0cm) Aortic Valve AoV Peak Qldwjaqt236.0cm/Manny Peak GR.11mmHg Mitral Valve E/A ratio0.0 TDI E/Lateral E'0.0E/Medial E'0.0 Tricuspid Valve TR Peak [id number]/sRAP [id number] Peak Gr.23mmHg [id number] LEFT VENTRICLE The left ventricle is normal size. There is mild concentric left ventricular hypertrophy. The left ventricular function is normal. The left ventricular ejection fraction is within the normal range. There is normal LV segmental wall motion. RIGHT VENTRICLE The right ventricle is normal size. ATRIA The left atrium is moderately dilated. The right atrium is moderately dilated. The interatrial septum is intact with no evidence for an atrial septal defect. AORTIC VALVE The aortic valve is moderately calcified. There is mild aortic regurgitation. MITRAL VALVE The mitral valve is normal in structure. Mitral regurgitation is moderate. TRICUSPID VALVE The tricuspid valve is normal in structure. There is mild tricuspid regurgitation. PULMONIC VALVE The pulmonic valve is not well visualized. GREAT VESSELS The aortic root is normal in size. PERICARDIAL EFFUSION There is a trace circumferential pericardial effusion. <Conclusion> The left ventricle is normal size. There is mild concentric left ventricular hypertrophy. The left ventricular function is normal. The aortic valve is moderately calcified. Aortic sclerosis vs. mild . There is mild aortic regurgitation. Mitral regurgitation is moderate. There is mild tricuspid regurgitation. There is a trace circumferential pericardial effusion.
--- NOTE | 2018-04-07 13:52 | PCM.RRT ---
<Danitza Orozco - Last Filed: 04/07/18 13:46> HISTORIOGRAPHY PROFESSOR Nurse Assessment - Situation Date: 04/07/18 Time HISTORIOGRAPHY PROFESSOR was called: 13:15 HISTORIOGRAPHY PROFESSOR Responder Arrival Time: 13:17 HISTORIOGRAPHY PROFESSOR Location:: [address] [place] [address] Room Number: [id number] HISTORIOGRAPHY PROFESSOR Reason for Call: Change in Mental Status HISTORIOGRAPHY PROFESSOR Called By: RN - IV IV Inserted during HISTORIOGRAPHY PROFESSOR?: No IV Fluids Initiated During HISTORIOGRAPHY PROFESSOR?: NS 100cc/hr - Respiratory Oxygen Delivery Method: Room Air Received Nebulizer Treatments:: No Was the Patient Ventilated with Bag/Mask 100% O2?: No Secretions Suctioned?: No Was the Patient Intubated?: No Was the Patient Placed on a Ventilator?: No - Medication Medications Administered During HISTORIOGRAPHY PROFESSOR: NS 100cc/hr - Diagnostic Test Ordered EKG: Yes Chest X-Ray: No CT Scan: No - Stat Labs Ordered HISTORIOGRAPHY PROFESSOR Stat Labs Ordered: CBC, PT/PTT, TROPONIN HISTORIOGRAPHY PROFESSOR Other Labs Ordered: CMP, Mag, Phos CPR started during HISTORIOGRAPHY PROFESSOR?: No - Vital Signs Vital Sign: Rapid Response Vital Sign Blood Pressure 135/93 Pulse Rate 82 Respiratory Rate 20 Oxygen Saturation 96 - Finger Stick Blood Glucose Finger Stick Blood Glucose: 114 - [place] Coma Scale Coma Scale Eye Opening: To pain Coma Scale Motor: Movement to pain stimulus Coma Scale Verbal: Confused/able to answer - Time HISTORIOGRAPHY PROFESSOR Ended Time HISTORIOGRAPHY PROFESSOR Ended: 13:23 - Vital Signs at end of HISTORIOGRAPHY PROFESSOR Vital Signs at end of HISTORIOGRAPHY PROFESSOR: Rapid Response End Vital Sign Blood Pressure 114/64 Pulse Rate 64 Respiratory Rate 20 Temperature 98.2 F O2 Sat by Pulse Oximetry 96 - Recommendations Notifications: Attending Physician, Family or Designated Caregiver I.Reason for HISTORIOGRAPHY PROFESSOR - A) Acute Change in Patient: (Select all that apply): Acute change in mental status - Respiratory Oxygen Delivery Method: Room Air - Constitutional Appears: Non-toxic, No Acute Distress, Older Than Stated Age, Chronically Ill - Head Head Exam: ATRAUMATIC, NORMOCEPHALIC - Eyes Eye Exam: EOMI, PERRL. absent: Conjunctival injection, Nystagmus, Scleral icterus - Respiratory Exam Respiratory Exam: Clear to Ausculation Bilateral, NORMAL BREATHING PATTERN. absent: Accessory Muscle Use, Rhonchi, Wheezes, Stridor - Cardiovascular Exam Cardiovascular Exam: RRR, +S1, +S2. absent: Murmur - GI/Abdominal Exam GI & Abdominal Exam: Soft, Normal Bowel Sounds. absent: Distended, Firm, Guarding, Tenderness, Mass, Rebound - Neurological Exam Neurological Exam: Alert, Awake (oriented x1 (at baseline)) - Extremities Exam Extremities Exam: Normal Inspection Plan - Assessment of Findings&Treatment Plan 87 F with a past medical history of renal cell carcinoma, hypertension, dementia , atrial fibrillation, mitral regurgitation and tia, admitted to [facility] for multiple falls over the past two days. HISTORIOGRAPHY PROFESSOR called today as pt was unresponsive while on the commode. As per nursing staff, pt was doing well, on the commode, when she suddenly stopped following commands. Pt was then transferred to the bed by staff. Of note, pt had received Seroquel about 30 minutes prior to the episode and pt has not been sleeping for past 2 days. On my arrival, pt was alert, responsive to questions, oriented x1 (at baseline), afebrile, hemodynamically stable: CBC, CMP, Mg, phosph, EKG, trop, coags Will check vitals in [address] Roy at bedside. Danitza Orozco, PGY1 <Fabrizio Roy - Last Filed: 04/07/18 15:13> HISTORIOGRAPHY PROFESSOR Nurse Assessment - Vital Signs Vital Sign: Rapid Response Vital Sign Blood Pressure 135/93 Pulse Rate 82 Respiratory Rate 20 Oxygen Saturation 96 - Vital Signs at end of HISTORIOGRAPHY PROFESSOR Vital Signs at end of HISTORIOGRAPHY PROFESSOR: Rapid Response End Vital Sign Blood Pressure 114/64 Pulse Rate 64 Respiratory Rate 20 Temperature 98.2 F O2 Sat by Pulse Oximetry 96 Attending/Attestation - Attestation I have personally seen and examined this patient.: Yes I have fully participated in the care of the patient.: Yes I have reviewed all pertinent clinical information, including history, physical exam and plan: Yes Notes (Text): Patient seen and examined during the HISTORIOGRAPHY PROFESSOR. Hemodynamically stable. Vitals checked and stable, accucheck >100. Most likely medication related as patient was recently started on Seroquel. Will d/c medication for now. Monitor closely for hemodynamical stability and frequent neurochecks.
[2018-04-07 14:09] LABS: BASO # 0.03 K/mm3 (0.0-2.0); BASO % 0.3 % (0.0-3.0); EOS # 0.1 (0.0-0.7); EOS % 0.6 % (1.5-5.0); GRAN # 6.51 (1.4-6.5); GRAN % 75.4 % (50.0-68.0); HEMOGLOBIN 13.9 g/dL (12.0-16.0); LYMPH # 1.2 (1.2-3.4); LYMPH % 14.2 % (22.0-35.0); MEAN CELL VOLUME 87.9 fl (80.0-105.0); MEAN CORPUSCULAR HEMOGLOBIN 29.5 pg (25.0-35.0); MEAN CORPUSCULAR HGB CONC 33.6 g/dl (31.0-37.0); MEAN PLATELET VOLUME 10.4 fl (7.0-11.0); MONO # 0.8 (0.1-0.6); MONO % 9.5 % (1.0-6.0); RBC 4.71 10^6/uL (3.5-6.1); RED CELL DISTRIBUTION WIDTH 14.5 % (11.5-14.5); WHITE BLOOD COUNT 8.6 10^3/ul (4.5-11.0)
[2018-04-07 14:19] LABS: INR 1.54 (0.93-1.08); PROTHROMBIN TIME 17.7 SECONDS (9.4-12.5)
[2018-04-07 14:42] LABS: ALB/GLOB RATIO 1.1 (1.1-1.8); ALBUMIN 4.3 g/dL (3.0-4.8); TROPONIN I 0.37 ng/mL
--- NOTE | 2018-04-07 14:53 | CP.PCM.PN ---
<Misha Carrillo - Last Filed: 04/07/18 16:18> Subjective - Date & Time of Evaluation Date of Evaluation: 04/07/18 Time of Evaluation: 14:51 - Subjective Subjective: Patient seen and examined at bedside. Per nursing patient was agigtated the whole night and was given Geodon with no improvement in restlesness. ROS unable to be obtained due to patient's current clinical condition. Objective - Vital Signs/Intake and Output Vital Signs (last 24 hours): Temp Pulse Resp BP Pulse Ox 97.1 F L 66 19 151/78 H 95 04/07/18 12:00 04/07/18 12:00 04/07/18 12:00 04/07/18 12:00 04/07/18 09:37 Intake and Output: 04/07/18 04/07/18 06:59 18:59 Intake Total 180 Balance 180 - Medications Medications: Current Medications Carbidopa/Levodopa (Sinemet) 1 tab PO 0700,1200 [facility] Last Admin: 04/07/18 11:09 Dose: 1 tab Dabigatran (Pradaxa) 75 mg PO BID [facility] PRN Reason: Protocol Last Admin: 04/07/18 11:09 Dose: 75 mg Furosemide (Lasix) 20 mg PO DAILY [facility] Last Admin: 04/07/18 11:10 Dose: 20 mg Sodium Chloride (Sodium Chloride 0.9%) 1,000 mls @ 100 mls/hr IV .Q10H [facility] Losartan Potassium (Cozaar) 50 mg PO DAILY [facility] Last Admin: 04/07/18 11:09 Dose: 50 mg Metoprolol Tartrate (Lopressor) 5 mg IVP Q6 PRN PRN Reason: Systolic Blood Pressure Pantoprazole Sodium (Protonix Ec Tab) 40 mg PO ACB [facility] Last Admin: 04/07/18 08:29 Dose: 40 mg Potassium Chloride (K-Dur 20 Meq Er Tab) 20 meq PO DAILY [facility] Last Admin: 04/07/18 11:09 Dose: 20 meq - Labs Labs: 04/07/18 13:50 04/07/18 13:50 PT 17.7 SECONDS (9.4-12.5) H 04/07/18 13:50 INR 1.54 (0.93-1.08) H 04/07/18 13:50 APTT 51.0 Seconds (25.1-36.5) H 04/07/18 13:50 - Head Exam Head Exam: ATRAUMATIC, NORMAL INSPECTION, NORMOCEPHALIC - Eye Exam Eye Exam: EOMI, Normal appearance, PERRL Pupil Exam: NORMAL ACCOMODATION - ENT Exam ENT Exam: Mucous Membranes Moist - Respiratory Exam Respiratory Exam: Clear to Ausculation Bilateral, NORMAL BREATHING PATTERN - Cardiovascular Exam Cardiovascular Exam: REGULAR RHYTHM, +S1, +S2 - GI/Abdominal Exam GI & Abdominal Exam: Soft, Normal Bowel Sounds - Back Exam Back Exam: NORMAL INSPECTION. absent: CVA tenderness (R), paraspinal tenderness - Neurological Exam Neurological Exam: Altered, Awake, CN II-XII Intact - Psychiatric Exam Psychiatric exam: Normal Affect, Normal Mood - Skin Skin Exam: Dry Additional comments: Ecchymotic right hand . Assessment and Plan - Assessment and Plan (Free Text) Assessment: 87 year old female with a past medical history of renal cell carcinoma, hypertension, dementia, atrial fibrillation, mitral regurgitation and tia who is being admitted for multiple falls over the past two days Plan: 1. Multiple falls -Neurological vs. Cardiac vs. Musculoskeletal origin Head CT: Negative Chest CT: small pericardial effusions Pelvis xray: negative for fracture Chest xray: negative for active disease Orthostatics negative. Echocardiogram taken. Final read pending. Will f/u with results. Right hand xray: negative for fracture. -Witnessed account of six falls over the past two days. -Cardiology consulted. Help appreciated -Neurology consulted. Help appreciated. -Seroquel started. Patient didn't tolerate well and it was discharged. Will f/u with Neurology for further rec's. 2.history of atrial fibrillation -Continue home medications. -Patient is currently rate controlled. Only on anticoagulation at this time. -CHADSVasc score of 6: 9.7% stroke risk yearly. 3.history of hypertension -Continue home medications. PPX -Protonix <Fabrizio Roy - Last Filed: 04/07/18 16:47> Objective - Vital Signs/Intake and Output Vital Signs (last 24 hours): Temp Pulse Resp BP Pulse Ox 97.1 F L 66 19 151/78 H 95 04/07/18 12:00 04/07/18 12:00 04/07/18 12:00 04/07/18 12:00 04/07/18 09:37 Intake and Output: 06/07/18 06/07/18 06:59 18:59 Intake Total 180 Balance 180 - Medications Medications: Current Medications Carbidopa/Levodopa (Sinemet) 1 tab PO 0700,1200 [facility] Last Admin: 04/07/18 11:09 Dose: 1 tab Dabigatran (Pradaxa) 75 mg PO BID [facility] PRN Reason: Protocol Last Admin: 04/07/18 11:09 Dose: 75 mg Furosemide (Lasix) 20 mg PO DAILY [facility] Last Admin: 04/07/18 11:10 Dose: 20 mg Sodium Chloride (Sodium Chloride 0.9%) 1,000 mls @ 100 mls/hr IV .Q10H [facility] Last Admin: 04/07/18 15:01 Dose: 100 mls/hr Losartan Potassium (Cozaar) 50 mg PO DAILY [facility] Last Admin: 04/07/18 11:09 Dose: 50 mg Metoprolol Tartrate (Lopressor) 5 mg IVP Q6 PRN PRN Reason: Systolic Blood Pressure Pantoprazole Sodium (Protonix Ec Tab) 40 mg PO ACB [facility] Last Admin: 04/07/18 08:29 Dose: 40 mg Potassium Chloride (K-Dur 20 Meq Er Tab) 20 meq PO DAILY [facility] Last Admin: 04/07/18 11:09 Dose: 20 meq - Labs Labs: 04/07/18 13:50 04/07/18 13:50 PT 17.7 SECONDS (9.4-12.5) H 04/07/18 13:50 INR 1.54 (0.93-1.08) H 04/07/18 13:50 APTT 51.0 Seconds (25.1-36.5) H 04/07/18 13:50 Attending/Attestation - Attestation I have personally seen and examined this patient.: Yes I have fully participated in the care of the patient.: Yes I have reviewed all pertinent clinical information, including history, physical exam and plan: Yes Notes (Text): Patient seen and examined with the residents. Agree with above. Noted to be more lethargic this morning. Was started on Seroquel which the son states "did not suit her" Was a rapid response this afternoon as she was noted to be more altered and confused while on the commode - HD stable and most likely medication induced from Seroquel. Will hold off on any sedative medication including benzo's at this time. D/C Seroquel from medications. Further neuro recommendations.
[2018-04-07] MEDS: Sodium Chloride 0.9% 1,000 ML IV SCH ×2 (15:01→22:44)
--- NOTE | 2018-04-07 16:29 | CARD ---
APPROVED REPORT EKG Measurement Heart [id number] <Conclusion> Atrial flutter with variable AV block Left axis deviation PRWP NSSTW changes
[2018-04-08 07:10] LABS: URINE BILIRUBIN NEGATIVE (NEGATIVE); URINE BLOOD LARGE (NEGATIVE); URINE GLUCOSE (UA) NEGATIVE (NEGATIVE); URINE LEUKOCYTE ESTERASE MODERATE Leu/uL (NEGATIVE); URINE PROTEIN 100 mg/dL (<30 mg/dL)
[2018-04-08 07:13] LABS: URINE APPEARANCE CLEAR (CLEAR); URINE COLOR STRAW (YELLOW)
[2018-04-08 07:18] LABS: BASO # 0.03 K/mm3 (0.0-2.0); BASO % 0.4 % (0.0-3.0); EOS # 0.2 (0.0-0.7); GRAN # 5.39 (1.4-6.5); GRAN % 67.4 % (50.0-68.0); HEMOGLOBIN 13.4 g/dL (12.0-16.0); LYMPH # 1.6 (1.2-3.4); LYMPH % 20.3 % (22.0-35.0); MEAN CELL VOLUME 88.5 fl (80.0-105.0); MEAN CORPUSCULAR HEMOGLOBIN 28.6 pg (25.0-35.0); MEAN CORPUSCULAR HGB CONC 32.4 g/dl (31.0-37.0); MEAN PLATELET VOLUME 11.1 fl (7.0-11.0); MONO # 0.7 (0.1-0.6); MONO % 8.9 % (1.0-6.0); RBC 4.68 10^6/uL (3.5-6.1); RED CELL DISTRIBUTION WIDTH 14.8 % (11.5-14.5)
[2018-04-08 07:40] LABS: URINE AMORPHOUS SEDIMENT MODERATE; URINE BACTERIA MANY (NEG); URINE RBC TNTC /hpf (0-2); URINE WBC TNTC /hpf (0-6)
[2018-04-08 07:48] LABS: ALB/GLOB RATIO 1.1 (1.1-1.8); ALBUMIN 3.7 g/dL (3.0-4.8); ALT/SGPT 21 U/L (7-56); AST/SGOT 29 U/L (14-36); BLOOD UREA NITROGEN 14 mg/dL (7-21); CALCIUM 9.5 mg/dL (8.4-10.5); GFR AFRICAN-AMERICAN > 60; GFR NON-AFRICAN AMERICAN 53
[2018-04-08] MEDS: Pantoprazole 40 mg EC Tab PO SCH (08:27)
[2018-04-08] MEDS ORDERED: Potassium Chloride 20 mEq ER Tab PO ONE (08:51)
--- NOTE | 2018-04-08 08:54 | CP.PCM.PN ---
Subjective - Date & Time of Evaluation Date of Evaluation: 04/08/18 Time of Evaluation: 07:00 - Subjective Subjective: Stable on 2R. No CP or SOB now. [employer] INVESTIGATOR called yesterday for unresponsiveness on commode. 1:1 sitter now. V/S noted. AF 65 - 130 BPM PE: Lungs: clear Cor: irreg S1S2, sys. murmur Abd.: soft Ext.: no edema Neuro.: alert Labs noted: K+= 3.5, trops: 0.37, 0.25 Echo: Nl LV, Mild , AI,TR, and mod. MR. Small/trace peric. effusion Objective - Vital Signs/Intake and Output Vital Signs (last 24 hours): Temp Pulse Resp BP Pulse Ox 98.1 F 55 L 20 166/56 H 96 04/08/18 05:58 04/08/18 05:58 04/08/18 05:58 04/08/18 05:58 04/08/18 05:58 Intake and Output: 04/08/18 04/08/18 06:59 18:59 Intake Total 1550 Output Total 1575 Balance -25 - Medications Medications: Current Medications Carbidopa/Levodopa (Sinemet) 1 tab PO 0700,1200 [facility] Last Admin: 04/08/18 08:27 Dose: 1 tab Cephalexin Monohydrate (Keflex) 250 mg PO Q6 [facility] PRN Reason: Protocol Dabigatran (Pradaxa) 75 mg PO BID [facility] PRN Reason: Protocol Last Admin: 04/07/18 17:47 Dose: 75 mg Furosemide (Lasix) 20 mg PO DAILY [facility] Last Admin: 04/07/18 11:10 Dose: 20 mg Losartan Potassium (Cozaar) 50 mg PO DAILY [facility] Last Admin: 04/07/18 11:09 Dose: 50 mg Metoprolol Tartrate (Lopressor) 5 mg IVP Q6 PRN PRN Reason: Systolic Blood Pressure Pantoprazole Sodium (Protonix Ec Tab) 40 mg PO ACB [facility] Last Admin: 04/08/18 08:27 Dose: 40 mg Potassium Chloride (K-Dur 20 Meq Er Tab) 20 meq PO DAILY [facility] Last Admin: 04/07/18 11:09 Dose: 20 meq - Labs Labs: 04/08/18 06:30 04/08/18 06:30 PT 17.7 SECONDS (9.4-12.5) H 04/07/18 13:50 INR 1.54 (0.93-1.08) H 04/07/18 13:50 APTT 51.0 Seconds (25.1-36.5) H 04/07/18 13:50 Assessment and Plan - Assessment and Plan (Free Text) Assessment: Multiple Falls AF with mod VR off chronotropic meds CVD: critical LICA stenosis, etc. See U/S report. Dementia HBP TIA S/P nephrectomy for renal cell cancer Plan: Neuro eval. PO KCL Avoid neg. chronotropic meds. Continue tel for now Continue Pradaxa for now but may d/c at time of d/c b/o fall risk Will follow.
[2018-04-08] MEDS: Potassium Chloride 20 mEq ER Tab PO SCH (10:39)
--- NOTE | 2018-04-08 20:00 | CON ---
DATE: CONSULTATION NOTE HISTORY OF PRESENT ILLNESS: In short, the patient is 87-year-old female with history of dementia, hypertension, renal cancer, chronic constipation, multiple medical issues. Please see medical team notes for more detailed information. The patient was admitted on the medical side, status post fall and frequent falls recently. Psych consult was called for combative and agitated behavior. The patient was seen and examined today. Discussed with the patient's son, Miguel Angel Laboy who is next to the patient for the future references, phone number is [phone]. As per the patient's son, he is power of contract attorney for the patient and the patient is DNI and DNR. The patient's son reported 2 years ago, the patient was officially diagnosed with Alzheimer dementia and since that time, the patient had difficulties to remember anything as well as executive functioning and family is really concerned about recent falls and inability to walk. As per collateral information, the patient did not tolerate well antipsychotic medications. She has opposite reaction on antipsychotic medications. She would become like more restless and agitated. VITAL SIGNS: This mortgage loan underwriter reviewed vital signs. Temperature is 98.4, pulse is 93, blood pressure 106/83, respirations 18. MEDICATIONS: Reviewed. The patient is on Norvasc, Sinemet, Keflex, Celexa will be started, Pradaxa 75 mg twice a day, Lasix, Cozaar, Protonix, K-Dur. This mortgage loan underwriter also would implement Xanax as needed for anxiety and restless behavior. LABORATORY DATA: Reviewed. Coagulation reviewed. Chemistry reviewed. Troponin 0.25 mg, which was high. Urinalysis showed moderate leukocyte esterase and blood large. Microbiology in the urine. MENTAL STATUS EXAMINATION: The patient got medicated over on at 11:32 as well as at the evening time. The patient also was on Valium, which was discontinued and at present moment, the patient is deeply sleeping and no option to have conversation with the patient. IMPRESSION: Most likely delirium on dementia. PLAN: Considering the fact that the patient had adverse reaction on Geodon and Seroquel, we will try to initiate Celexa for mood symptoms and irritability, sometimes described as a mood stabilizer for demented and agitated patient. This mortgage loan underwriter also would implement Xanax half of the minimal dose twice a day as well as at the nighttime as needed for restless and agitated behavior. Dr. Garcia will follow up on this patient over the weekend. Treatment plan was discussed with the patient's son, Miguel Angel who is next to her. Thank you very much. If the patient needs to, please continue one-to-one. Edie Gottlieb MD
--- NOTE | 2018-04-09 06:50 | CP.PCM.PN ---
Subjective - Date & Time of Evaluation Date of Evaluation: 04/08/18 Time of Evaluation: 08:00 - Subjective Subjective: Patient seen and examined at bedside. Per nursing no acute events occurred overnight. The patient is more lucid today upon examination. She denies any pain. Remainder of ROS unable to obtain due to current clinical condition. Objective - Vital Signs/Intake and Output Vital Signs (last 24 hours): Temp Pulse Resp BP Pulse Ox 97.6 F 57 L 16 142/78 96 04/09/18 06:00 04/09/18 06:00 04/09/18 06:00 04/09/18 06:00 04/09/18 06:00 Intake and Output: 04/08/18 04/09/18 18:59 06:59 Intake Total 1550 480 Output Total 1575 300 Balance -25 180 - Medications Medications: Current Medications Alprazolam (Xanax) 0.125 mg PO BID PRN; Protocol PRN Reason: anxiety/restlessness Stop: 04/15/18 18:01 Last Admin: 04/08/18 17:25 Dose: 0.125 mg Alprazolam (Xanax) 0.125 mg PO HS PRN; Protocol PRN Reason: insomnia/restlessness Stop: 04/15/18 22:01 Last Admin: 04/08/18 23:22 Dose: 0.125 mg Amlodipine Besylate (Norvasc) 5 mg PO DAILY [facility] Last Admin: 04/08/18 09:44 Dose: 5 mg Carbidopa/Levodopa (Sinemet) 1 tab PO 0700,1200 [facility] Last Admin: 04/08/18 12:50 Dose: 1 tab Cephalexin Monohydrate (Keflex) 250 mg PO Q6 [facility] PRN Reason: Protocol Last Admin: 04/09/18 05:17 Dose: 250 mg Citalopram Hydrobromide (Celexa) 5 mg PO DAILY [facility] Dabigatran (Pradaxa) 75 mg PO BID [facility] PRN Reason: Protocol Last Admin: 04/08/18 17:25 Dose: 75 mg Furosemide (Lasix) 20 mg PO DAILY [facility] Last Admin: 04/08/18 09:45 Dose: 20 mg Losartan Potassium (Cozaar) 50 mg PO DAILY [facility] Last Admin: 04/08/18 09:45 Dose: 50 mg Pantoprazole Sodium (Protonix Ec Tab) 40 mg PO ACB [facility] Last Admin: 04/08/18 08:27 Dose: 40 mg Potassium Chloride (K-Dur 20 Meq Er Tab) 20 meq PO DAILY [facility] Last Admin: 04/08/18 10:39 Dose: Not Given - Labs Labs: 04/08/18 06:30 04/08/18 06:30 PT 17.7 SECONDS (9.4-12.5) H 04/07/18 13:50 INR 1.54 (0.93-1.08) H 04/07/18 13:50 APTT 51.0 Seconds (25.1-36.5) H 04/07/18 13:50 - Head Exam Head Exam: ATRAUMATIC, NORMAL INSPECTION, NORMOCEPHALIC - Eye Exam Eye Exam: EOMI, Normal appearance, PERRL Pupil Exam: NORMAL ACCOMODATION - ENT Exam ENT Exam: Mucous Membranes Moist - Respiratory Exam Respiratory Exam: Clear to Ausculation Bilateral, NORMAL BREATHING PATTERN - Cardiovascular Exam Cardiovascular Exam: REGULAR RHYTHM, +S1, +S2 - GI/Abdominal Exam GI & Abdominal Exam: Soft, Normal Bowel Sounds - Neurological Exam Neurological Exam: Alert, Awake, CN II-XII Intact - Psychiatric Exam Psychiatric exam: Normal Affect, Normal Mood - Skin Skin Exam: Dry, Intact Assessment and Plan - Assessment and Plan (Free Text) Assessment: 87 year old female with a past medical history of renal cell carcinoma, hypertension, dementia, atrial fibrillation, mitral regurgitation and tia who is being admitted for multiple falls over the past two days Plan: 1. Multiple falls -Neurological vs. Cardiac vs. Musculoskeletal origin Head CT: Negative Chest CT: small pericardial effusions Pelvis xray: negative for fracture Chest xray: negative for active disease Orthostatics negative. Echocardiogram taken. Final read pending. Will f/u with results. Right hand xray: negative for fracture. 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 -Witnessed account of six falls over the past two days. -Cardiology consulted. Help appreciated -Neurology consulted. Help appreciated. -Seroquel started. Patient didn't tolerate well and it was discharged. Will f/u with Neurology for further rec's. 2.history of atrial fibrillation -Continue home medications. -Patient is currently rate controlled. Only on anticoagulation at this time. -CHADSVasc score of 6: 9.7% stroke risk yearly. 3.history of hypertension -Continue home medications. PPX -Protonix Dispo: Patient expected to go to TCU. Discussed with Attending Dr. Julio. Misha Carrillo, PGY-1
[2018-04-09 07:11] LABS: BASO # 0.05 K/mm3 (0.0-2.0); BASO % 0.6 % (0.0-3.0); EOS # 0.5 (0.0-0.7); EOS % 5.4 % (1.5-5.0); GRAN # 5.25 (1.4-6.5); GRAN % 61.2 % (50.0-68.0); HEMOGLOBIN 13.4 g/dL (12.0-16.0); LYMPH % 23.3 % (22.0-35.0); MEAN CELL VOLUME 88.4 fl (80.0-105.0); MEAN CORPUSCULAR HEMOGLOBIN 28.3 pg (25.0-35.0); MONO # 0.8 (0.1-0.6); MONO % 9.5 % (1.0-6.0); RBC 4.74 10^6/uL (3.5-6.1); RED CELL DISTRIBUTION WIDTH 14.7 % (11.5-14.5); WHITE BLOOD COUNT 8.6 10^3/ul (4.5-11.0)
[2018-04-09 07:22] LABS: ALB/GLOB RATIO 1.1 (1.1-1.8); ALBUMIN 3.9 g/dL (3.0-4.8)
[2018-04-09] MEDS: Pantoprazole 40 mg EC Tab PO SCH (08:36)
[2018-04-09] MEDS: Potassium Chloride 20 mEq ER Tab PO SCH (10:54)
--- NOTE | 2018-04-09 13:15 | CP.PCM.PN ---
<Misha Carrillo - Last Filed: 04/09/18 15:04> Subjective - Date & Time of Evaluation Date of Evaluation: 04/09/18 Time of Evaluation: 13:11 - Subjective Subjective: Patient seen and examined at bedside. Per nursing no acute events occurred overnight. The patient is resting comfortably in no acute distress upon today' s visit. Patient reports feeling fine and denies any complaints. Patient is AOx1 during today's exam. Objective - Vital Signs/Intake and Output Vital Signs (last 24 hours): Temp Pulse Resp BP Pulse Ox 97.6 F 64 16 121/69 96 04/09/18 06:00 04/09/18 10:54 04/09/18 06:00 04/09/18 10:54 04/09/18 06:00 Intake and Output: 04/09/18 04/09/18 06:59 18:59 Intake Total 480 Output Total 300 Balance 180 - Medications Medications: Current Medications Alprazolam (Xanax) 0.125 mg PO BID PRN; Protocol PRN Reason: anxiety/restlessness Stop: 04/15/18 18:01 Last Admin: 04/09/18 08:36 Dose: 0.125 mg Alprazolam (Xanax) 0.125 mg PO HS PRN; Protocol PRN Reason: insomnia/restlessness Stop: 04/15/18 22:01 Last Admin: 04/08/18 23:22 Dose: 0.125 mg Amlodipine Besylate (Norvasc) 5 mg PO DAILY [facility] Last Admin: 04/09/18 10:54 Dose: 5 mg Bacitracin (Bacitracin) 1 gm TOP DAILY [facility] Carbidopa/Levodopa (Sinemet) 1 tab PO 0700,1200 [facility] Last Admin: 04/09/18 08:36 Dose: 1 tab Cephalexin Monohydrate (Keflex) 250 mg PO Q6 [facility] PRN Reason: Protocol Last Admin: 04/09/18 05:17 Dose: 250 mg Citalopram Hydrobromide (Celexa) 5 mg PO DAILY [facility] Last Admin: 04/09/18 10:53 Dose: 5 mg Dabigatran (Pradaxa) 75 mg PO BID [facility] PRN Reason: Protocol Last Admin: 04/09/18 10:53 Dose: 75 mg Furosemide (Lasix) 20 mg PO DAILY [facility] Last Admin: 04/09/18 10:54 Dose: 20 mg Losartan Potassium (Cozaar) 50 mg PO DAILY [facility] Last Admin: 04/09/18 10:53 Dose: 50 mg Pantoprazole Sodium (Protonix Ec Tab) 40 mg PO ACB [facility] Last Admin: 04/09/18 08:36 Dose: 40 mg Potassium Chloride (K-Dur 20 Meq Er Tab) 20 meq PO DAILY [facility] Last Admin: 04/09/18 10:54 Dose: 20 meq - Labs Labs: 04/09/18 06:30 04/09/18 06:30 PT 17.7 SECONDS (9.4-12.5) H 04/07/18 13:50 INR 1.54 (0.93-1.08) H 04/07/18 13:50 APTT 51.0 Seconds (25.1-36.5) H 04/07/18 13:50 - Head Exam Head Exam: ATRAUMATIC, NORMAL INSPECTION - Eye Exam Eye Exam: EOMI, Normal appearance, PERRL Pupil Exam: NORMAL ACCOMODATION - ENT Exam ENT Exam: Mucous Membranes Moist, Normal Oropharynx - Respiratory Exam Respiratory Exam: Clear to Ausculation Bilateral, NORMAL BREATHING PATTERN - Cardiovascular Exam Cardiovascular Exam: REGULAR RHYTHM, +S1, +S2 - GI/Abdominal Exam GI & Abdominal Exam: Soft, Normal Bowel Sounds - Extremities Exam Additional comments: ecchymosis appreciated on the right hand. - Neurological Exam Neurological Exam: Altered - Psychiatric Exam Psychiatric exam: Normal Affect, Normal Mood - Skin Skin Exam: Dry, Intact Assessment and Plan - Assessment and Plan (Free Text) Assessment: 87 year old female with a past medical history of renal cell carcinoma, hypertension, dementia, atrial fibrillation, mitral regurgitation and tia who is being admitted for multiple falls over the past two days Plan: 1. Multiple falls -Neurological vs. Cardiac vs. Musculoskeletal origin Head CT: Negative Chest CT: small pericardial effusions Pelvis xray: negative for fracture Chest xray: negative for active disease Orthostatics negative. 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 -Witnessed account of six falls over the past two days. -Cardiology consulted. Help appreciated -Neurology consulted. Help appreciated. -Seroquel started. Patient didn't tolerate well and it was discharged. Will f/u with Neurology for further rec's. 2.history of atrial fibrillation -Continue home medications. -Patient is currently rate controlled. Only on anticoagulation at this time. -CHADSVasc score of 6: 9.7% stroke risk yearly. -Patient had a Pause of 2.77 and heart of 30's overnight[address] Dr[address] La made aware. Asymptomatic. Heart rate returned to normal range. Will monitor. 3.history of hypertension -Continue home medications. 4. ?Parkinson's -Per Neurology rec's Sinemet. Will f/u for further rec's. 5. UTI Urine culture growing Corneybacterium species. Sensitivities not drawn. Repeat urine cx and sensitivities drawn and patient started Keflex afterwards. Will f/u with culture. 6. Renal cell carinoma -status post nephrectomy PPX -Protonix Disposition: Patient recommended for [facility]. Family will possibly send her to [facility] that has rehab in place. Plan discussed with Attending Dr. Grande. Misha Carrillo, PGY-1 <Angela Grande - Last Filed: 04/09/18 21:09> Objective - Vital Signs/Intake and Output Vital Signs (last 24 hours): Temp Pulse Resp BP Pulse Ox 97.6 F 89 18 137/76 95 04/09/18 18:00 04/09/18 18:00 04/09/18 18:00 04/09/18 18:00 04/09/18 18:00 Intake and Output: 04/09/18 04/10/18 18:59 06:59 Intake Total 720 Balance 720 - Medications Medications: Current Medications Alprazolam (Xanax) 0.125 mg PO BID PRN; Protocol PRN Reason: anxiety/restlessness Stop: 04/15/18 18:01 Last Admin: 04/09/18 20:22 Dose: 0.125 mg Alprazolam (Xanax) 0.125 mg PO HS PRN; Protocol PRN Reason: insomnia/restlessness Stop: 04/15/18 22:01 Last Admin: 04/08/18 23:22 Dose: 0.125 mg Amlodipine Besylate (Norvasc) 5 mg PO DAILY [facility] Last Admin: 04/09/18 10:54 Dose: 5 mg Bacitracin (Bacitracin) 1 gm TOP DAILY [facility] Last Admin: 04/09/18 15:40 Dose: 1 gm Carbidopa/Levodopa (Sinemet) 1 tab PO 0700,1200 [facility] Last Admin: 04/09/18 15:40 Dose: 1 tab Cephalexin Monohydrate (Keflex) 250 mg PO Q6 [facility] PRN Reason: Protocol Last Admin: 04/09/18 18:35 Dose: 250 mg Citalopram Hydrobromide (Celexa) 5 mg PO DAILY [facility] Last Admin: 04/09/18 10:53 Dose: 5 mg Dabigatran (Pradaxa) 75 mg PO BID [facility] PRN Reason: Protocol Last Admin: 04/09/18 18:34 Dose: 75 mg Furosemide (Lasix) 20 mg PO DAILY [facility] Last Admin: 04/09/18 10:54 Dose: 20 mg Losartan Potassium (Cozaar) 50 mg PO DAILY [facility] Last Admin: 04/09/18 10:53 Dose: 50 mg Pantoprazole Sodium (Protonix Ec Tab) 40 mg PO ACB [facility] Last Admin: 04/09/18 08:36 Dose: 40 mg Potassium Chloride (K-Dur 20 Meq Er Tab) 20 meq PO DAILY [facility] Last Admin: 04/09/18 10:54 Dose: 20 meq - Labs Labs: 04/09/18 06:30 04/09/18 06:30 PT 17.7 SECONDS (9.4-12.5) H 04/07/18 13:50 INR 1.54 (0.93-1.08) H 04/07/18 13:50 APTT 51.0 Seconds (25.1-36.5) H 04/07/18 13:50 Attending/Attestation - Attestation I have personally seen and examined this patient.: Yes I have fully participated in the care of the patient.: Yes I have reviewed all pertinent clinical information, including history, physical exam and plan: Yes Notes (Text): 04/09/18 21:06 Overnight issues as well as current labs, vitals and notes reviewed. Patient is much more alert and awake per the son elliott who is at the bedside and the agitation has improved as well. Patient is sitting comfortably,pleasantly confused(multifactorial). Agree with the plan as outlined by the resident and clearly discussed and communicated to the family.
[2018-04-09] MEDS: Bacitracin Ointment 30 GM TUBE TOP SCH (15:40)
[2018-04-10] MEDS: Pantoprazole 40 mg EC Tab PO SCH (08:27)
[2018-04-10 09:16] LABS: BASO # 0.03 K/mm3 (0.0-2.0); BASO % 0.5 % (0.0-3.0); EOS # 0.3 (0.0-0.7); EOS % 5.5 % (1.5-5.0); GRAN # 3.36 (1.4-6.5); GRAN % 59.2 % (50.0-68.0); LYMPH # 1.5 (1.2-3.4); LYMPH % 25.5 % (22.0-35.0); MEAN CELL VOLUME 88.6 fl (80.0-105.0); MEAN CORPUSCULAR HEMOGLOBIN 29.1 pg (25.0-35.0); MEAN CORPUSCULAR HGB CONC 32.9 g/dl (31.0-37.0); MEAN PLATELET VOLUME 10.7 fl (7.0-11.0); MONO # 0.5 (0.1-0.6); MONO % 9.3 % (1.0-6.0); RBC 4.46 10^6/uL (3.5-6.1); RED CELL DISTRIBUTION WIDTH 14.5 % (11.5-14.5); WHITE BLOOD COUNT 5.7 10^3/ul (4.5-11.0)
[2018-04-10 09:38] LABS: ALBUMIN 3.9 g/dL (3.0-4.8)
[2018-04-10] MEDS: Potassium Chloride 20 mEq ER Tab PO SCH (10:58)
--- NOTE | 2018-04-10 12:48 | CP.PCM.PN ---
<Misha Carrillo - Last Filed: 04/10/18 15:34> Subjective - Date & Time of Evaluation Date of Evaluation: 04/10/18 Time of Evaluation: 12:46 - Subjective Subjective: Patient seen and examined at bedside. Per nursing overnight the patient was more confused and sundowning and as a results she was given a one time dose of Xanax. Patient denies any complaints at this time. Objective - Vital Signs/Intake and Output Vital Signs (last 24 hours): Temp Pulse Resp BP Pulse Ox 97.5 F L 55 L 18 143/74 96 04/10/18 12:00 04/10/18 12:00 04/10/18 12:00 04/10/18 12:00 04/10/18 05:32 Intake and Output: 04/10/18 04/10/18 06:59 18:59 Intake Total 820 Balance 820 - Medications Medications: Current Medications Alprazolam (Xanax) 0.125 mg PO BID PRN; Protocol PRN Reason: anxiety/restlessness Stop: 04/15/18 18:01 Last Admin: 04/09/18 20:22 Dose: 0.125 mg Alprazolam (Xanax) 0.125 mg PO HS PRN; Protocol PRN Reason: insomnia/restlessness Stop: 04/15/18 22:01 Last Admin: 04/08/18 23:22 Dose: 0.125 mg Amlodipine Besylate (Norvasc) 5 mg PO DAILY [facility] Last Admin: 04/09/18 10:54 Dose: 5 mg Bacitracin (Bacitracin) 1 gm TOP DAILY [facility] Last Admin: 04/09/18 15:40 Dose: 1 gm Carbidopa/Levodopa (Sinemet) 1 tab PO 0700,1200 [facility] Last Admin: 04/10/18 08:27 Dose: 1 tab Cephalexin Monohydrate (Keflex) 250 mg PO Q6 [facility] PRN Reason: Protocol Last Admin: 04/10/18 06:33 Dose: 250 mg Citalopram Hydrobromide (Celexa) 5 mg PO DAILY [facility] Last Admin: 04/09/18 10:53 Dose: 5 mg Dabigatran (Pradaxa) 75 mg PO BID [facility] PRN Reason: Protocol Last Admin: 04/09/18 18:34 Dose: 75 mg Furosemide (Lasix) 20 mg PO DAILY [facility] Last Admin: 04/09/18 10:54 Dose: 20 mg Losartan Potassium (Cozaar) 50 mg PO DAILY [facility] Last Admin: 04/09/18 10:53 Dose: 50 mg Pantoprazole Sodium (Protonix Ec Tab) 40 mg PO ACB [facility] Last Admin: 04/10/18 08:27 Dose: 40 mg Potassium Chloride (K-Dur 20 Meq Er Tab) 20 meq PO DAILY [facility] Last Admin: 04/09/18 10:54 Dose: 20 meq - Labs Labs: 04/10/18 08:45 04/10/18 08:45 PT 17.7 SECONDS (9.4-12.5) H 04/07/18 13:50 INR 1.54 (0.93-1.08) H 04/07/18 13:50 APTT 51.0 Seconds (25.1-36.5) H 04/07/18 13:50 - Constitutional Appears: Confused - Head Exam Head Exam: ATRAUMATIC, NORMAL INSPECTION, NORMOCEPHALIC - Eye Exam Eye Exam: EOMI, Normal appearance, PERRL Pupil Exam: NORMAL ACCOMODATION - ENT Exam ENT Exam: Mucous Membranes Moist, Normal Oropharynx - Neck Exam Neck Exam: Normal Inspection - Respiratory Exam Respiratory Exam: Clear to Ausculation Bilateral, NORMAL BREATHING PATTERN. absent: Prolonged Expiratory Phase, Respiratory Distress - Cardiovascular Exam Cardiovascular Exam: REGULAR RHYTHM, +S1, +S2 - GI/Abdominal Exam GI & Abdominal Exam: Soft, Normal Bowel Sounds - Back Exam Back Exam: NORMAL INSPECTION - Neurological Exam Neurological Exam: Alert, Altered, Awake - Psychiatric Exam Psychiatric exam: Normal Affect, Normal Mood - Skin Skin Exam: Dry, Intact, Normal Color Assessment and Plan - Assessment and Plan (Free Text) Assessment: 87 year old female with a past medical history of renal cell carcinoma, hypertension, dementia, atrial fibrillation, mitral regurgitation and tia who is being admitted for multiple falls over the past two days Plan: 1. Multiple falls -Neurological vs. Cardiac vs. Musculoskeletal origin Head CT: Negative Chest CT: small pericardial effusions Pelvis xray: negative for fracture Chest xray: negative for active disease Orthostatics negative. 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 -Witnessed account of six falls over the past two days. -Cardiology consulted. Help appreciated -Neurology consulted. Help appreciated. -Will f/u with Neurology for further rec's. 2.history of atrial fibrillation -Continue home medications. -Patient is currently rate controlled. Only on anticoagulation at this time. -CHADSVasc score of 6: 9.7% stroke risk yearly. 3.history of hypertension -Norvasc held today as blood pressure was soft. Will monitor. 4. ?Parkinson's -Per Neurology rec's Sinemet and will continue. Will f/u for further rec's. 5. UTI Urine culture growing Corneybacterium species. Sensitivities not drawn. Repeat urine cx and sensitivities drawn and patient started Keflex afterwards. Culture shows probably contamination. Continue Keflex. 6. Renal cell carinoma -status post nephrectomy PPX -Protonix Disposition: Patient recommended for [facility]. Family will possibly send her to [facility] that has rehab in place. Will discuss discharge options with family today. Plan discussed with Attending Dr. Grande. Misha Carrillo, PGY-1 <Angela Grande - Last Filed: 04/10/18 21:47> Objective - Vital Signs/Intake and Output Vital Signs (last 24 hours): Temp Pulse Resp BP Pulse Ox 97.3 F L 77 18 104/65 96 04/10/18 18:00 04/10/18 18:00 04/10/18 18:00 04/10/18 18:00 04/10/18 18:00 Intake and Output: 04/10/18 04/11/18 18:59 06:59 Intake Total 540 Output Total 350 Balance 190 - Medications Medications: Current Medications Alprazolam (Xanax) 0.125 mg PO BID PRN; Protocol PRN Reason: anxiety/restlessness Stop: 04/15/18 18:01 Last Admin: 04/10/18 14:38 Dose: 0.125 mg Alprazolam (Xanax) 0.125 mg PO HS PRN; Protocol PRN Reason: insomnia/restlessness Stop: 04/15/18 22:01 Last Admin: 04/10/18 20:02 Dose: 0.125 mg Amlodipine Besylate (Norvasc) 5 mg PO DAILY [facility] Last Admin: 04/10/18 10:58 Dose: 5 mg Bacitracin (Bacitracin) 1 gm TOP DAILY [facility] Last Admin: 04/10/18 18:10 Dose: 1 gm Carbidopa/Levodopa (Sinemet) 1 tab PO 0700,1200 [facility] Last Admin: 04/10/18 12:55 Dose: 1 tab Cephalexin Monohydrate (Keflex) 250 mg PO Q6 [facility] PRN Reason: Protocol Last Admin: 04/10/18 18:09 Dose: 250 mg Citalopram Hydrobromide (Celexa) 5 mg PO DAILY [facility] Last Admin: 04/10/18 10:55 Dose: 5 mg Dabigatran (Pradaxa) 75 mg PO BID [facility] PRN Reason: Protocol Last Admin: 04/10/18 18:09 Dose: 75 mg Furosemide (Lasix) 20 mg PO DAILY [facility] Last Admin: 04/10/18 12:58 Dose: 20 mg Losartan Potassium (Cozaar) 50 mg PO DAILY [facility] Last Admin: 04/10/18 12:55 Dose: 50 mg Pantoprazole Sodium (Protonix Ec Tab) 40 mg PO ACB [facility] Last Admin: 04/10/18 08:27 Dose: 40 mg Potassium Chloride (K-Dur 20 Meq Er Tab) 20 meq PO DAILY [facility] Last Admin: 04/10/18 10:58 Dose: 20 meq - Labs Labs: 04/10/18 08:45 04/10/18 08:45 PT 17.7 SECONDS (9.4-12.5) H 04/07/18 13:50 INR 1.54 (0.93-1.08) H 04/07/18 13:50 APTT 51.0 Seconds (25.1-36.5) H 04/07/18 13:50 Attending/Attestation - Attestation I have personally seen and examined this patient.: Yes I have fully participated in the care of the patient.: Yes I have reviewed all pertinent clinical information, including history, physical exam and plan: Yes Notes (Text): 04/10/18 21:46 Patient seen and examined at bedside. Overnight had intermittent agitation. Today, she is calm and responsive. Family in the room. Vitals, labs noted. Orders reviewed. Agree with the plan of care as outlined by the resident including post acute care plan.
[2018-04-10] MEDS: Bacitracin Ointment 30 GM TUBE TOP SCH (18:10)
--- NOTE | 2018-04-11 08:39 | CON ---
DATE: 04/09/2018 HISTORY OF PRESENT ILLNESS: Patient is an 87-year-old female with a history of dementia, being seen by Psychiatry on the medical floor for combative and agitated behavior. I reviewed. Dr. Gottlieb's notes and as well as the staff notes on the unit. I met with patient at bedside and needs to be oriented consistent with the diagnosis of Alzheimer dementia with my visit, however, she is restless and confused and need frequent redirection by staff members. Patient repeats "I do not know what is going on" over and over again and appears to be on her disorientation. She is not combative at this time; however, she appears and labile and remains unpredictable. She does not appear to be actively hallucinating and denies having any active hallucinations at this time; however, her credibility is questionable considering her forgetfulness. Insight and judgment continues to be fair. Vital signs were reviewed and patient's lab works were reviewed. RELEVANT MEDICATIONS: Include Xanax 0.125 mg p.o. b.i.d. and at bedtime p.r.n., Celexa 5 mg daily. IMPRESSION: I agree with Dr. Gottlieb. Patient is likely suffering from delirium on dementia. RECOMMENDATIONS: We will continue with current treatment and plan including Celexa and Xanax. There had been no recent outburst noted in patient's charts. Psychiatry will follow up with patient every other day. Next followup will be on Wednesday04/11/2018, by Dr. Gottlieb. Sreekanth Garcia MD
[2018-04-11] MEDS: Bacitracin Ointment 30 GM TUBE TOP SCH (09:28)
[2018-04-11] MEDS: Pantoprazole 40 mg EC Tab PO SCH (09:33)
[2018-04-11] MEDS: Potassium Chloride 20 mEq ER Tab PO SCH (09:33)
--- NOTE | 2018-04-11 09:50 | CP.PCM.CON ---
History of Present Illness - History of Present Illness History of Present Illness: 87 yr old woman who is seen for repeated falls. Miss Laboy is a pleasant woman who lives alone with pmh of dementia, hypertension, atrial fibrillation, renal ca s/p nephrectomy, MR who came in for repeated falls over the last several days. She needs the walker accordingt to the son, and there is no report of seizure or altered mental status and the patient has not woken up with tongue bite or urinary incontinence. This was not a code stroke initially and the patient does not have an outside neurologist. Past medical history: hypertension, dementia, atrial fibrillation, tia, renal carcinoma, mitral regurgitation Medications: Family member states she will bring in list of medications Allergies: Sulfa Past surgical history: denies Social history: Denies. Lives with daughter. Nurses aid helps with ADL's. PMD: Dr. Hickman Geriatrics: Dr. Elizondo on exam: awake, alert but not responding to questions. There is no cogwheel rigidity, no tremor, no bradykinesia. motor: strength 5/5 ul and ll. sensory:not accurate. gait is very wide based but no ataxia. +2 dtr ul and ll bl. Past Patient History - Tetanus Immunizations Tetanus Immunization: Unknown - Past Social History Smoking Status: Former Smoker - CARDIAC Hx Cardiac Disorders: Yes Hx Atrial Fibrillation: Yes Hx Cardia Arrhythmia: Yes Hx Heart Murmur: Yes Hx Hypertension: Yes - PULMONARY Hx Respiratory Disorders: No - NEUROLOGICAL Hx Neurological Disorder: Yes Hx Dementia: Yes Hx Transient Ischemic Attacks (TIA): Yes - HEENT Hx HEENT Problems: Yes Hx Blind: Yes - RENAL Hx Chronic Kidney Disease: Yes Other/Comment: cyst on left kidney. Only has left kidney - ENDOCRINE/METABOLIC Hx Endocrine Disorders: No - HEMATOLOGICAL/ONCOLOGICAL Hx Blood Disorders: Yes Hx Anemia: Yes Hx Cancer: Yes (kidney) - INTEGUMENTARY Hx Dermatological Problems: No - MUSCULOSKELETAL/RHEUMATOLOGICAL Hx Falls: Yes (admission) - GASTROINTESTINAL Hx Gastrointestinal Disorders: Yes Hx Constipation: Yes Hx Diverticulitis: Yes Hx Hemorrhoids: Yes - GENITOURINARY/GYNECOLOGICAL Hx Genitourinary Disorders: Yes Other/Comment: OVERACTIVE BLADDER - PSYCHIATRIC Hx Psychophysiologic Disorder: Yes Hx Anxiety: Yes Hx Depression: Yes Hx Substance Use: No - SURGICAL HISTORY Hx Appendectomy: Yes Other/Comment: NEPHRECTOMY Meds Allergies/Adverse Reactions: Allergies Allergy/AdvReac Type Severity Reaction Status Date / Time Sulfa (Sulfonamide Allergy SWELLING Verified 04/05/18 15:07 Antibiotics) - Medications Medications: Current Medications Dabigatran (Pradaxa) 75 mg PO BID [facility] PRN Reason: Protocol Last Admin: 04/06/18 17:37 Dose: 75 mg Diazepam (Valium) 2.5 mg PO BID PRN; Protocol PRN Reason: Agitation Last Admin: 04/06/18 16:24 Dose: 2.5 mg Furosemide (Lasix) 20 mg PO DAILY [facility] Last Admin: 04/06/18 10:59 Dose: 20 mg Non-Formulary Medication (Azilsartan Medoxomil [Edarbi]) 80 mg PO DAILY [facility] Last Admin: 04/06/18 10:55 Dose: Not Given Suvorexant [Belsomra (] 10 Mg) 10 mg PO HS [facility] Pantoprazole Sodium (Protonix Ec Tab) 40 mg PO ACB [facility] Results - Vital Signs Recent Vital Signs: Last Vital Signs Temp 97.5 F L 04/06/18 17:34 Pulse 65 04/06/18 17:34 Resp 18 04/06/18 17:34 BP 154/76 H 04/06/18 17:34 Pulse Ox 96 04/06/18 06:00 - Labs Result Diagrams: 04/10/18 08:45 04/10/18 08:45 Labs: Laboratory Results - last 24 hr 04/06/18 04/06/18 04/06/18 06:30 06:30 06:30 WBC 5.7 RBC 4.27 Hgb 12.2 Hct 37.3 MCV 87.4 MCH 28.6 MCHC 32.7 RDW 14.5 Plt Count 256 MPV 11.0 Gran % 59.0 Lymph % (Auto) 27.6 [place] % (Auto) 10.6 H Eos % (Auto) 2.1 Baso % (Auto) 0.7 Gran # 3.34 Lymph # (Auto) 1.6 [place] # (Auto) 0.6 Eos # (Auto) 0.1 Baso # (Auto) 0.04 Sodium 145 Potassium 3.6 Chloride 105 Carbon Dioxide 27 Anion Gap 17 BUN 13 Creatinine 1.0 Est GFR ( Amer) > 60 Est GFR (Non-Af Amer) 53 Random Glucose 93 Calcium 9.9 Phosphorus 2.9 Magnesium 2.2 Total Bilirubin 0.7 AST 20 ALT 24 Alkaline Phosphatase 95 Total Protein 7.7 Albumin 3.8 Globulin 3.9 Albumin/Globulin Ratio 1.0 L TSH 3rd Generation 04/06/18 06:30 WBC RBC Hgb Hct MCV MCH MCHC RDW Plt Count MPV Gran % Lymph % (Auto) [place] % (Auto) Eos % (Auto) Baso % (Auto) Gran # Lymph # (Auto) [place] # (Auto) Eos # (Auto) Baso # (Auto) Sodium Potassium Chloride Carbon Dioxide Anion Gap BUN Creatinine Est GFR ( Amer) Est GFR (Non-Af Amer) Random Glucose Calcium Phosphorus Magnesium Total Bilirubin AST ALT Alkaline Phosphatase Total Protein Albumin Globulin Albumin/Globulin Ratio TSH 3rd Generation 2.59 - Imaging and Cardiology CT scan - head Status: Image reviewed by me, Report reviewed by me (ct head shows profound atrophy but no acute stroke or hemorrhage ) Assessment & Plan - Assessment and Plan (Free Text) Assessment: 87 yr old woman with profound dementia who does not have stigmata of parkinsons but i feel that her cognition is greatly impacting her walking. I will recommend repeat CT scan if further falls, as current ct head does not show stroke, and she has no signs of ischemia. Recommend gait training and fall precautions. MRI brain if tolerated/ Thank you Dr esquivel
[2018-04-11 11:06] LABS: BASO # 0.05 K/mm3 (0.0-2.0); BASO % 0.7 % (0.0-3.0); EOS # 0.3 (0.0-0.7); EOS % 3.6 % (1.5-5.0); GRAN # 4.2 (1.4-6.5); GRAN % 61.1 % (50.0-68.0); LYMPH # 1.9 (1.2-3.4); MEAN CELL VOLUME 89.4 fl (80.0-105.0); MEAN CORPUSCULAR HEMOGLOBIN 29.2 pg (25.0-35.0); MEAN CORPUSCULAR HGB CONC 32.7 g/dl (31.0-37.0); MEAN PLATELET VOLUME 10.4 fl (7.0-11.0); MONO # 0.5 (0.1-0.6); MONO % 7.6 % (1.0-6.0); RBC 4.79 10^6/uL (3.5-6.1); RED CELL DISTRIBUTION WIDTH 14.4 % (11.5-14.5); WHITE BLOOD COUNT 6.9 10^3/ul (4.5-11.0)
[2018-04-11 11:18] LABS: ALB/GLOB RATIO 1.1 (1.1-1.8); ALBUMIN 4.4 g/dL (3.0-4.8); CALCIUM 10.3 mg/dL (8.4-10.5)
--- NOTE | 2018-04-11 20:45 | CP.PCM.PN ---
<Misha Carrillo - Last Filed: 04/11/18 20:46> Subjective - Date & Time of Evaluation Date of Evaluation: 04/11/18 Time of Evaluation: 20:44 - Subjective Subjective: Patient seen and examined at bedside .Per nursing no acute events occurred overnight. Patient is orientated to self during examination. Patient denies any chest pain,shortness of breath ,fevers, chills, nausea, vomiting, or any other complaints. Objective - Vital Signs/Intake and Output Vital Signs (last 24 hours): Temp Pulse Resp BP Pulse Ox 97.5 F L 74 17 119/65 98 04/11/18 18:00 04/11/18 18:00 04/11/18 18:00 04/11/18 18:00 04/11/18 06:00 Intake and Output: 04/11/18 04/12/18 18:59 06:59 Intake Total 600 Balance 600 - Medications Medications: Current Medications Alprazolam (Xanax) 0.125 mg PO BID PRN; Protocol PRN Reason: anxiety/restlessness Stop: 04/15/18 18:01 Last Admin: 04/11/18 18:52 Dose: 0.125 mg Alprazolam (Xanax) 0.125 mg PO HS PRN; Protocol PRN Reason: insomnia/restlessness Stop: 04/15/18 22:01 Last Admin: 04/10/18 20:02 Dose: 0.125 mg Amlodipine Besylate (Norvasc) 5 mg PO DAILY [facility] Last Admin: 04/11/18 12:13 Dose: 5 mg Aspirin (Ecotrin) 81 mg PO DAILY [facility] Last Admin: 04/11/18 12:12 Dose: 81 mg Bacitracin (Bacitracin) 1 gm TOP DAILY [facility] Last Admin: 04/11/18 09:28 Dose: 1 gm Carbidopa/Levodopa (Sinemet) 1 tab PO 0700,1200 [facility] Last Admin: 04/11/18 12:12 Dose: 1 tab Cephalexin Monohydrate (Keflex) 250 mg PO Q6 [facility] PRN Reason: Protocol Last Admin: 04/11/18 17:38 Dose: 250 mg Chlorpromazine (Thorazine) 10 mg PO HS PRN; Protocol PRN Reason: agitation/aggression Citalopram Hydrobromide (Celexa) 5 mg PO DAILY [facility] Last Admin: 04/11/18 09:32 Dose: 5 mg Dabigatran (Pradaxa) 75 mg PO BID [facility] PRN Reason: Protocol Last Admin: 04/11/18 17:38 Dose: 75 mg Furosemide (Lasix) 20 mg PO DAILY [facility] Last Admin: 04/11/18 09:33 Dose: 20 mg Losartan Potassium (Cozaar) 50 mg PO DAILY [facility] Last Admin: 04/11/18 09:29 Dose: 50 mg Pantoprazole Sodium (Protonix Ec Tab) 40 mg PO ACB [facility] Last Admin: 04/11/18 09:33 Dose: 40 mg Potassium Chloride (K-Dur 20 Meq Er Tab) 20 meq PO DAILY [facility] Last Admin: 04/11/18 09:33 Dose: 20 meq - Labs Labs: 04/11/18 10:30 04/11/18 10:30 PT 17.7 SECONDS (9.4-12.5) H 04/07/18 13:50 INR 1.54 (0.93-1.08) H 04/07/18 13:50 APTT 51.0 Seconds (25.1-36.5) H 04/07/18 13:50 - Head Exam Head Exam: ATRAUMATIC, NORMAL INSPECTION, NORMOCEPHALIC - Eye Exam Eye Exam: EOMI, Normal appearance, PERRL Pupil Exam: NORMAL ACCOMODATION - ENT Exam ENT Exam: Mucous Membranes Moist, Normal Oropharynx - Neck Exam Neck Exam: Normal Inspection - Respiratory Exam Respiratory Exam: Clear to Ausculation Bilateral, NORMAL BREATHING PATTERN - Cardiovascular Exam Cardiovascular Exam: REGULAR RHYTHM, +S1, +S2. absent: Gallop, Rubs - GI/Abdominal Exam GI & Abdominal Exam: Soft, Normal Bowel Sounds - Back Exam Back Exam: NORMAL INSPECTION. absent: CVA tenderness (R), paraspinal tenderness - Neurological Exam Neurological Exam: Awake, CN II-XII Intact - Psychiatric Exam Psychiatric exam: Normal Affect, Normal Mood - Skin Skin Exam: Dry, Intact, Normal Color Assessment and Plan - Assessment and Plan (Free Text) Assessment: 87 year old female with a past medical history of renal cell carcinoma, hypertension, dementia, atrial fibrillation, mitral regurgitation and tia who is being admitted for multiple falls over the past two days Plan: 1. Multiple falls -Neurological vs. Cardiac vs. Musculoskeletal origin Head CT: Negative Chest CT: small pericardial effusions Pelvis xray: negative for fracture Chest xray: negative for active disease Orthostatics negative. 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 -Witnessed account of six falls over the past two days. -Cardiology consulted. Help appreciated -Neurology consulted. Help appreciated. 2.history of atrial fibrillation -Continue home medications. -Patient is currently rate controlled. Only on anticoagulation at this time. -CHADSVasc score of 6: 9.7% stroke risk yearly. 3.history of hypertension -Continue blood pressure meds. 4. ?Parkinson's -Per Neurology rec's Sinemet and will continue. Will f/u for further rec's. 5. UTI Urine culture growing Corneybacterium species. Sensitivities not drawn. Repeat urine cx and sensitivities drawn and patient started Keflex afterwards. Culture shows probably contamination. Continue Keflex. 6. Renal cell carinoma -status post nephrectomy PPX -Protonix Disposition: Patient pending placement. Patient needs behavioral management per Psychiatry otherwise will most likely be unsuccessful in rehab. Will discuss options with Case Management and Psychiatry tomorrow. Plan discussed with Attending Dr. Davila. Misha Carrillo, PGY-1 <Roslyn Davila - Last Filed: 04/12/18 13:41> Objective - Vital Signs/Intake and Output Vital Signs (last 24 hours): Temp Pulse Resp BP Pulse Ox 98.3 F 60 18 133/67 98 04/12/18 09:50 04/12/18 09:57 04/12/18 09:50 04/12/18 09:57 04/12/18 09:50 Intake and Output: 04/12/18 04/12/18 06:59 18:59 Intake Total 240 Output Total 2 Balance 238 - Medications Medications: Current Medications Alprazolam (Xanax) 0.125 mg PO BID PRN; Protocol PRN Reason: anxiety/restlessness Stop: 04/15/18 18:01 Last Admin: 04/11/18 18:52 Dose: 0.125 mg Alprazolam (Xanax) 0.125 mg PO HS PRN; Protocol PRN Reason: insomnia/restlessness Stop: 04/15/18 22:01 Last Admin: 04/10/18 20:02 Dose: 0.125 mg Amlodipine Besylate (Norvasc) 5 mg PO DAILY [facility] Last Admin: 04/12/18 09:56 Dose: 5 mg Aspirin (Ecotrin) 81 mg PO DAILY [facility] Last Admin: 04/12/18 09:57 Dose: 81 mg Bacitracin (Bacitracin) 1 gm TOP DAILY [facility] Last Admin: 04/12/18 11:04 Dose: 1 gm Carbidopa/Levodopa (Sinemet) 1 tab PO 0700,1200 [facility] Last Admin: 04/12/18 12:09 Dose: 1 tab Cephalexin Monohydrate (Keflex) 250 mg PO Q6 [facility] PRN Reason: Protocol Last Admin: 04/12/18 12:09 Dose: 250 mg Chlorpromazine (Thorazine) 10 mg PO HS PRN; Protocol PRN Reason: agitation/aggression Citalopram Hydrobromide (Celexa) 5 mg PO DAILY [facility] Last Admin: 04/12/18 09:55 Dose: 5 mg Dabigatran (Pradaxa) 75 mg PO BID [facility] PRN Reason: Protocol Last Admin: 04/12/18 09:55 Dose: 75 mg Furosemide (Lasix) 20 mg PO DAILY [facility] Last Admin: 04/12/18 09:57 Dose: 20 mg Losartan Potassium (Cozaar) 50 mg PO DAILY [facility] Last Admin: 04/12/18 09:57 Dose: 50 mg Pantoprazole Sodium (Protonix Ec Tab) 40 mg PO ACB [facility] Last Admin: 04/12/18 08:09 Dose: 40 mg Potassium Chloride (K-Dur 20 Meq Er Tab) 20 meq PO DAILY [facility] Last Admin: 04/12/18 09:55 Dose: 20 meq - Labs Labs: 04/11/18 10:30 04/11/18 10:30 PT 17.7 SECONDS (9.4-12.5) H 04/07/18 13:50 INR 1.54 (0.93-1.08) H 04/07/18 13:50 APTT 51.0 Seconds (25.1-36.5) H 04/07/18 13:50 Attending/Attestation - Attestation I have personally seen and examined this patient.: Yes I have fully participated in the care of the patient.: Yes I have reviewed all pertinent clinical information, including history, physical exam and plan: Yes Notes (Text): 04/12/18 13:30 attending note; Patient seen and examined with resident. Patient's son by the bedside. Patient is a 87 year old female with a past medical history of renal cell carcinoma, hypertension, dementia, atrial fibrillation, mitral regurgitation and TIA is admitted for multiple falls. x-rays negative. Patient with a history of dementia. Currently with sundowning with agitation at nighttime. Cardiology and neurology evaluation appreciated. Change Manager recommended to discontinue pradaxa upon discharge. Carotid stenosis; started on aspirin. Upon discharge patient will follow-up with Dr. Benjamin. Currently agreed with conservative management. Agitation; behavioral changes due to dementia. Psychiatric evaluation appreciated. Continue Xanax and Celexa. started on Thorazine when necessary. One-to-one as needed. Case discussed Patient's son in detail. social organization professor evaluation Appreciated for discharge planning. Upon discharge the patient will follow-up with PMD Dr. Rizo.
--- NOTE | 2018-04-11 22:34 | PN ---
DATE: 04/11/2018 SUBJECTIVE: In short, the patient is 87-year-old female with reported history of dementia. Patient was admitted on the medical side for evaluation of change in mental status. Initially, patient was seen last week on Wednesday. Patient was seen for followup by Dr. Garcia over the weekend and this greeting card writer is taking over. Over the weekend, no acute issues. Patient is off one-to-one. Patient has sundowning symptoms. Patient is restless at the nighttime, but there is no agitation, no aggression, no acute psychosis. Patient was followed up today. Patient presented to be pleasantly confused. Patient was smiling to this greeting card writer, was not in any acute distress. Patient's family left this greeting card writer two messages and this greeting card writer called the patient's son, Miguel Angel. Miguel Angel expressed his concerns about his mother and he was asking about the medication, what was implemented to his mother. As it was discussed last Wednesday, as per family, patient did not tolerate any antipsychotic medications in the past. It was agreed with the family that Xanax 0.125 mg three times a day and Celexa were started. This greeting card writer educated in case of necessity if patient will be agitated or psychotic overnight, Thorazine will be implemented, 10 mg at the nighttime. Risks, benefits, and alternatives discussed with the patient's son, Miguel Angel. Patient's son verbalized understanding. VITAL SIGNS: Seems to be stable. Temperature 97.4, pulse is 87, blood pressure 148/74, respirations 18. MEDICATIONS: Reviewed. Xanax 0.125 mg three times a day, Norvasc, aspirin, bacitracin, Sinemet, Keflex, Thorazine 10 mg at the nighttime as needed for agitation and aggression, Celexa 5 mg daily, Pradaxa, Lasix, Cozaar, Protonix, K-Dur. LABORATORY DATA: Reviewed. Most recent was from today. Coagulation reviewed. Chemistry reviewed. Urinalysis with leukocyte esterase moderate. Microbiology: bacteria species. MENTAL STATUS EXAMINATION: As this greeting card writer described above, patient is pleasantly confused. No meaningful conversation possible. Patient is not in any acute distress, still appears to be comfortable. Patient was not able to process any questioning about mood, depression, or sleep as well as insight seems to be impaired. Impulses are relatively well controlled. No aggression, no agitation. IMPRESSION: Delirium on dementia due to urinary tract infection. PLAN: Treatment plan was discussed with the family, Miguel Angel. Phone number is [phone]. Family was in agreement to initiate Thorazine 10 mg at the nighttime as needed. Xanax should be continued and Celexa was continued, 5 mg. Case was discussed with Dr. Davila. Management of this case took more than 45 minutes of this greeting card writer's time. Edie Gottlieb MD
[2018-04-12] MEDS: Pantoprazole 40 mg EC Tab PO SCH (08:09)
[2018-04-12] MEDS: Potassium Chloride 20 mEq ER Tab PO SCH (09:55)
--- NOTE | 2018-04-12 10:12 | CP.PCM.CON ---
History of Present Illness - History of Present Illness History of Present Illness: Palliative consult requested by Dr Génesis Davila Reason: Goals of care 87 year old female with history of dementia, A Fib,renal cell carcinoma s/p R nephrectomy who presented on 04/05/18 after falling at home. She presented with swelling of right hand.no fracture no injury. Troponins elevated. EKG: atrial flutter with AV block. Echo: moderate calcification of aortic valve,mild aortic/ tricuspid regurgitation, EF 65%. Chest CT: cardiomegaly, small pericardial effusion. During this admission patient became combative and agitated. CT of head negative for acute findings. Psych following for delirium on dementia. Labs WBC6.9, Hgb 13.4, Plt 272, Na 144, K 4.0, BUN 16, Creat 1.1, Albumin 3.7 Vital Signs: T98.4, P 64, BP 135/72, R 20 , 02 sat 99%. PMHx: dementia,atrial fibrillation,HTN, renal cell call s/p R nephrectomy, TIA, frequent falls. Social History: Former smoker, no alcohol or drug use. Lives with family. Family History: Non contributory. Advance Care Panning: The patient does not have an Advance Directive. She is DNR /DNI. Review of Systems: As per HPI, 12 point review negative. Past Patient History - Tetanus Immunizations Tetanus Immunization: Unknown - Past Social History Smoking Status: Former Smoker - CARDIAC Hx Cardiac Disorders: Yes Hx Atrial Fibrillation: Yes Hx Cardia Arrhythmia: Yes Hx Heart Murmur: Yes Hx Hypertension: Yes - PULMONARY Hx Respiratory Disorders: No - NEUROLOGICAL Hx Neurological Disorder: Yes Hx Dementia: Yes Hx Transient Ischemic Attacks (TIA): Yes - HEENT Hx HEENT Problems: Yes Hx Blind: Yes - RENAL Hx Chronic Kidney Disease: Yes Other/Comment: cyst on left kidney. Only has left kidney - ENDOCRINE/METABOLIC Hx Endocrine Disorders: No - HEMATOLOGICAL/ONCOLOGICAL Hx Blood Disorders: Yes Hx Anemia: Yes Hx Cancer: Yes (kidney) - INTEGUMENTARY Hx Dermatological Problems: No - MUSCULOSKELETAL/RHEUMATOLOGICAL Hx Falls: Yes (admission) - GASTROINTESTINAL Hx Gastrointestinal Disorders: Yes Hx Constipation: Yes Hx Diverticulitis: Yes Hx Hemorrhoids: Yes - GENITOURINARY/GYNECOLOGICAL Hx Genitourinary Disorders: Yes Other/Comment: OVERACTIVE BLADDER - PSYCHIATRIC Hx Psychophysiologic Disorder: Yes Hx Anxiety: Yes Hx Depression: Yes Hx Substance Use: No - SURGICAL HISTORY Hx Appendectomy: Yes Other/Comment: NEPHRECTOMY Meds Allergies/Adverse Reactions: Allergies Allergy/AdvReac Type Severity Reaction Status Date / Time Sulfa (Sulfonamide Allergy SWELLING Verified 04/05/18 15:07 Antibiotics) - Medications Medications: Current Medications Alprazolam (Xanax) 0.125 mg PO BID PRN; Protocol PRN Reason: anxiety/restlessness Stop: 04/15/18 18:01 Last Admin: 04/11/18 18:52 Dose: 0.125 mg Alprazolam (Xanax) 0.125 mg PO HS PRN; Protocol PRN Reason: insomnia/restlessness Stop: 04/15/18 22:01 Last Admin: 04/10/18 20:02 Dose: 0.125 mg Amlodipine Besylate (Norvasc) 5 mg PO DAILY [facility] Last Admin: 04/12/18 09:56 Dose: 5 mg Aspirin (Ecotrin) 81 mg PO DAILY [facility] Last Admin: 04/12/18 09:57 Dose: 81 mg Bacitracin (Bacitracin) 1 gm TOP DAILY [facility] Last Admin: 04/11/18 09:28 Dose: 1 gm Carbidopa/Levodopa (Sinemet) 1 tab PO 0700,1200 [facility] Last Admin: 04/12/18 08:10 Dose: 1 tab Cephalexin Monohydrate (Keflex) 250 mg PO Q6 [facility] PRN Reason: Protocol Last Admin: 04/12/18 06:01 Dose: 250 mg Chlorpromazine (Thorazine) 10 mg PO HS PRN; Protocol PRN Reason: agitation/aggression Citalopram Hydrobromide (Celexa) 5 mg PO DAILY [facility] Last Admin: 04/12/18 09:55 Dose: 5 mg Dabigatran (Pradaxa) 75 mg PO BID [facility] PRN Reason: Protocol Last Admin: 04/12/18 09:55 Dose: 75 mg Furosemide (Lasix) 20 mg PO DAILY [facility] Last Admin: 04/12/18 09:57 Dose: 20 mg Losartan Potassium (Cozaar) 50 mg PO DAILY [facility] Last Admin: 04/12/18 09:57 Dose: 50 mg Pantoprazole Sodium (Protonix Ec Tab) 40 mg PO ACB [facility] Last Admin: 04/12/18 08:09 Dose: 40 mg Potassium Chloride (K-Dur 20 Meq Er Tab) 20 meq PO DAILY [facility] Last Admin: 04/12/18 09:55 Dose: 20 meq Physical Exam - Constitutional Appears: No Acute Distress - Head Exam Head Exam: NORMAL INSPECTION - Eye Exam Eye Exam: Normal appearance, PERRL - ENT Exam ENT Exam: Mucous Membranes Moist, Normal Oropharynx - Neck Exam Neck exam: Positive for: Normal Inspection - Respiratory Exam Respiratory Exam: Clear to Auscultation Bilateral, NORMAL BREATHING PATTERN - Cardiovascular Exam Cardiovascular Exam: Irregular Rhythm, +S1, +S2 - GI/Abdominal Exam GI & Abdominal Exam: Normal Bowel Sounds, Soft Additional comments: no tenderness - Extremities Exam Extremities exam: Positive for: normal inspection - Back Exam Back exam: NORMAL INSPECTION - Neurological Exam Neurological exam: Altered - Skin Skin Exam: Dry, Warm Results - Vital Signs Recent Vital Signs: Last Vital Signs Temp 98.4 F 04/12/18 06:00 Pulse 60 04/12/18 09:57 Resp 20 04/12/18 06:00 BP 133/67 04/12/18 09:57 Pulse Ox 99 04/12/18 06:00 - Labs Result Diagrams: 04/11/18 10:30 04/11/18 10:30 Labs: Laboratory Results - last 24 hr 04/11/18 04/11/18 10:30 10:30 WBC 6.9 D RBC 4.79 Hgb 14.0 Hct 42.8 MCV 89.4 MCH 29.2 MCHC 32.7 RDW 14.4 Plt Count 272 MPV 10.4 Gran % 61.1 Lymph % (Auto) 27.0 [place] % (Auto) 7.6 H Eos % (Auto) 3.6 Baso % (Auto) 0.7 Gran # 4.20 Lymph # (Auto) 1.9 [place] # (Auto) 0.5 Eos # (Auto) 0.3 Baso # (Auto) 0.05 Sodium 144 Potassium 4.0 Chloride 102 Carbon Dioxide 30 Anion Gap 16 BUN 16 Creatinine 1.1 Est GFR ( Amer) 57 Est GFR (Non-Af Amer) 47 Random Glucose 97 Calcium 10.3 Total Bilirubin 0.8 AST 23 ALT 28 Alkaline Phosphatase 85 Total Protein 8.3 Albumin 4.4 Globulin 3.9 Albumin/Globulin Ratio 1.1 Assessment & Plan - Assessment and Plan (Free Text) Assessment: 87 year old female with hsity of chronic A Fib, dementia, gait dysfunction, renal cell carcinoma s/p nephrectomy who is admitted s/p fall with A Fib, UTI, delirium on dementia. The patient is resting quietly in bed. One to one for safety. She needs assist with ADL's. She ambulates with a cane at home. History of frequent falls The patient is DNR/DNI. I was asked to speak with this family regarding future goals of care. I met with daughter, Vinita. Daughter aware that her mother is not appropriate for hospice care at this time. Daughter expressed that her mother's dementia is progressing and that as her condition declines she is looking for more of a palliative approach to her care. Vinita understands that while her mother is in an acute care setting, medical interventions and treatment will continue. Vinita hopes to get her mother's behavioral situation under control so that she can transition her to rehab. From rehab the next goal would be placement for [facility] care. Vinita aware that once in [facility] care, hospice /palliative care can be revisited. Psychosocial support provided Time spent in goals of care and advance care planning with family, 30 minutes Plan: Delirium/dementia: Psych following. Thorazine,, Sinemet, Xanax ,Celexa. Possible admission to 5 B when medically cleared. A Fib; Cardiology consult. Ana Nuñez K Dur, Shelly Panda. UTI: ID consult , Keflex. Falls: Fall precautions, one to one for safety. PT/OT Goals of care/ advance care planning
--- NOTE | 2018-04-12 10:47 | CP.PCM.PN ---
<Misha Carrillo - Last Filed: 04/12/18 16:24> Subjective - Date & Time of Evaluation Date of Evaluation: 04/12/18 Time of Evaluation: 10:42 - Subjective Subjective: Patient seen and examined at bedside. Per nursing no acute events occurred overnight. Patient is orientated to self only. Patient denies any complaints at during visit today. Objective - Vital Signs/Intake and Output Vital Signs (last 24 hours): Temp Pulse Resp BP Pulse Ox 98.4 F 60 20 133/67 99 04/12/18 06:00 04/12/18 09:57 04/12/18 06:00 04/12/18 09:57 04/12/18 06:00 Intake and Output: 04/12/18 04/12/18 06:59 18:59 Intake Total 240 Output Total 2 Balance 238 - Medications Medications: Current Medications Alprazolam (Xanax) 0.125 mg PO BID PRN; Protocol PRN Reason: anxiety/restlessness Stop: 04/15/18 18:01 Last Admin: 04/11/18 18:52 Dose: 0.125 mg Alprazolam (Xanax) 0.125 mg PO HS PRN; Protocol PRN Reason: insomnia/restlessness Stop: 04/15/18 22:01 Last Admin: 04/10/18 20:02 Dose: 0.125 mg Amlodipine Besylate (Norvasc) 5 mg PO DAILY [facility] Last Admin: 04/12/18 09:56 Dose: 5 mg Aspirin (Ecotrin) 81 mg PO DAILY [facility] Last Admin: 04/12/18 09:57 Dose: 81 mg Bacitracin (Bacitracin) 1 gm TOP DAILY [facility] Last Admin: 04/11/18 09:28 Dose: 1 gm Carbidopa/Levodopa (Sinemet) 1 tab PO 0700,1200 [facility] Last Admin: 04/12/18 08:10 Dose: 1 tab Cephalexin Monohydrate (Keflex) 250 mg PO Q6 CARLO PRN Reason: Protocol Last Admin: 04/12/18 06:01 Dose: 250 mg Chlorpromazine (Thorazine) 10 mg PO HS PRN; Protocol PRN Reason: agitation/aggression Citalopram Hydrobromide (Celexa) 5 mg PO DAILY [facility] Last Admin: 04/12/18 09:55 Dose: 5 mg Dabigatran (Pradaxa) 75 mg PO BID [facility] PRN Reason: Protocol Last Admin: 04/12/18 09:55 Dose: 75 mg Furosemide (Lasix) 20 mg PO DAILY [facility] Last Admin: 04/12/18 09:57 Dose: 20 mg Losartan Potassium (Cozaar) 50 mg PO DAILY [facility] Last Admin: 04/12/18 09:57 Dose: 50 mg Pantoprazole Sodium (Protonix Ec Tab) 40 mg PO ACB [facility] Last Admin: 04/12/18 08:09 Dose: 40 mg Potassium Chloride (K-Dur 20 Meq Er Tab) 20 meq PO DAILY [facility] Last Admin: 04/12/18 09:55 Dose: 20 meq - Labs Labs: 04/11/18 10:30 04/11/18 10:30 PT 17.7 SECONDS (9.4-12.5) H 04/07/18 13:50 INR 1.54 (0.93-1.08) H 04/07/18 13:50 APTT 51.0 Seconds (25.1-36.5) H 04/07/18 13:50 - Head Exam Head Exam: ATRAUMATIC, NORMAL INSPECTION, NORMOCEPHALIC - Eye Exam Eye Exam: PERRL Pupil Exam: NORMAL ACCOMODATION - ENT Exam ENT Exam: Mucous Membranes Moist, Normal Oropharynx - Neck Exam Neck Exam: Normal Inspection - Respiratory Exam Respiratory Exam: Clear to Ausculation Bilateral, NORMAL BREATHING PATTERN. absent: Prolonged Expiratory Phase, Respiratory Distress - Cardiovascular Exam Cardiovascular Exam: REGULAR RHYTHM, +S1, +S2 - GI/Abdominal Exam GI & Abdominal Exam: Soft, Normal Bowel Sounds. absent: Rigid, Hyperactive Bowel Sounds - Back Exam Back Exam: NORMAL INSPECTION. absent: CVA tenderness (L), CVA tenderness (R), paraspinal tenderness - Neurological Exam Neurological Exam: Altered - Psychiatric Exam Psychiatric exam: Normal Affect, Normal Mood - Skin Skin Exam: Dry, Intact Assessment and Plan - Assessment and Plan (Free Text) Assessment: 87 year old female with a past medical history of renal cell carcinoma, hypertension, dementia, atrial fibrillation, mitral regurgitation and tia who is being admitted for multiple falls over the past two days Plan: 1. Multiple falls -Neurological vs. Cardiac vs. Musculoskeletal origin Head CT: Negative Chest CT: small pericardial effusions Pelvis xray: negative for fracture Chest xray: negative for active disease Orthostatics negative. 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 -Witnessed account of six falls over the past two days. -Cardiology consulted. Help appreciated -Neurology consulted. Help appreciated. 2.history of atrial fibrillation -Continue home medications. -Patient is currently rate controlled. Only on anticoagulation at this time. -Continue Aspirin 81mg PO Daily. -CHADSVasc score of 6: 9.7% stroke risk yearly. 3.history of hypertension -Continue blood pressure meds. 4. ?Parkinson's -Per Neurology rec's Sinemet and will continue. Will f/u for further rec's. 5. UTI Urine culture growing Corneybacterium species. Sensitivities not drawn. Repeat urine cx and sensitivities drawn and patient started Keflex afterwards. Culture shows probably contamination. Continue Keflex. 6. Renal cell carinoma -status post nephrectomy PPX -Protonix Disposition: Patient pending placement. Patient needs behavioral management per Psychiatry otherwise will most likely be unsuccessful in rehab. Family wants comfort care per the son's request. Palliative care consulted and will follow up next course of action will be. Plan discussed with Attending Dr. Davila. Misha Carrillo, PGY-1 <Roslyn Davila - Last Filed: 04/13/18 18:45> Objective - Vital Signs/Intake and Output Vital Signs (last 24 hours): Temp Pulse Resp BP Pulse Ox 97.9 F 88 20 165/84 H 95 04/13/18 06:00 04/13/18 06:00 04/13/18 06:00 04/13/18 09:00 04/13/18 06:00 Intake and Output: 04/13/18 04/13/18 06:59 18:59 Intake Total 240 480 Balance 240 480 - Labs Labs: 04/11/18 10:30 04/11/18 10:30 PT 17.7 SECONDS (9.4-12.5) H 04/07/18 13:50 INR 1.54 (0.93-1.08) H 04/07/18 13:50 APTT 51.0 Seconds (25.1-36.5) H 04/07/18 13:50 Attending/Attestation - Attestation I have personally seen and examined this patient.: Yes I have fully participated in the care of the patient.: Yes I have reviewed all pertinent clinical information, including history, physical exam and plan: Yes Notes (Text): attending note; Patient seen and examined with resident. Patient is a 87 year old female with a past medical history of renal cell carcinoma, hypertension, dementia, atrial fibrillation, mitral regurgitation and TIA is admitted for multiple falls. x-rays negative. Patient with a history of dementia. Currently with sundowning with agitation at nighttime. Cardiology and neurology evaluation appreciated. Track Welder recommended to discontinue pradaxa upon discharge. Carotid stenosis; started on aspirin. Upon discharge patient will follow-up with Dr. Benjamin. Currently agreed with conservative management. Agitation; behavioral changes due to dementia. Psychiatric evaluation appreciated. Continue Xanax and Celexa. started on Thorazine. Case discussed Patient's son in detail. aids social worker evaluation Appreciated for discharge planning. Upon discharge the patient will follow-up with PMD Dr. Rizo. 04/13/18 18:44
[2018-04-12] MEDS: Bacitracin Ointment 30 GM TUBE TOP SCH (11:04)
--- NOTE | 2018-04-12 13:38 | PN ---
DATE: 04/12/2018 SUBJECTIVE: The patient was followed up today. Yesterday, this insurance writer implemented Thorazine at the nighttime 10 mg, but the patient was not confused or agitated, did not receive any Thorazine overnight. The patient presented to be calm, pleasant, cooperative, but was confused and also the patient seems to be confabulating during the interview, but the patient seems to be very comfortable and no agitation or aggression. This insurance writer had prolonged conversation with the patient's son yesterday. Notes reviewed from Palliative Care. The patient is DNR and DNI. This insurance writer reviewed vital signs. Temperature 98.3, pulse is 60, blood pressure 133/69, respirations 18, oxygen saturation is 98. Medications reviewed. The patient is on Xanax 1.25 mg three times a day as needed, Norvasc, aspirin, bacitracin, Sinemet, Keflex, Thorazine 10 mg at nighttime as needed. The patient also is on Celexa 5 mg daily, Pradaxa, furosemide as well as Cozaar, Protonix and K-Dur. Labs reviewed. Most recent labs from yesterday seems to be within normal limits. MENTAL STATUS EXAMINATION: The patient appears to be alert, pleasant, cooperative, at times confabulates. The patient's mood is described as "I feel good thing, God." Affect was reactive, mood congruent. Thought process seems to be disorganized, the patient is confused, most likely it is due to dementia. Thought content, the patient denied thoughts of harming herself or others. There is no aggressive or agitated behavior. The patient is not psychotic, but the patient's insight and judgment seems to be impaired due to dementia. Impulses are better controlled. IMPRESSION: Most likely, the patient has delirium, which seems to be improving and dementia. PLAN: Continue current management. Continue current medications. Celexa should be continued. Thorazine was started, but the patient was not agitated or aggressive which is good as well as Xanax three times a day. We will follow up on this patient every other day. Discussed with Dr. Davila in detail. Should you have any questions, give me a call back. Thank you very much for letting me participate in care of your patient. Edie Gottlieb MD [facility] # [phone]
[2018-04-12 18:58] VITALS: O2SAT 95
[2018-04-13] MEDS: Pantoprazole 40 mg EC Tab PO SCH (08:05)
[2018-04-13 08:17] VITALS: BP 165/84; PULSE 88; RESP 20; TEMP 97.9
[2018-04-13] MEDS: Potassium Chloride 20 mEq ER Tab PO SCH (08:59)
[2018-04-13] MEDS: Bacitracin Ointment 30 GM TUBE TOP SCH (09:06)
--- NOTE | 2018-04-13 15:06 | CP.PCM.DIS ---
<LorenaWashington - Last Filed: 04/13/18 16:22> Provider - Provider Date of Admission: 04/05/18 18:17 Attending physician: Roslyn Davila MD Primary care physician: Connor Rizo MD Time Spent in preparation of Discharge (in minutes): 45 Hospital Course - Lab Results Lab Results: Micro Results 04/09/18 10:38 Urine Urine Culture - Final <10,000 CFU/ML. MULTIPLE SPECIES. PROBABLE CONTAMINATION. 04/05/18 18:48 Urine,Clean Catch Urine Culture - Final Corynebacterium Species Most Recent Lab Values WBC 6.9 10^3/ul (4.5-11.0) D 04/11/18 10:30 RBC 4.79 10^6/uL (3.5-6.1) 04/11/18 10:30 Hgb 14.0 g/dL (12.0-16.0) 04/11/18 10:30 Hct 42.8 % (36.0-48.0) 04/11/18 10:30 MCV 89.4 fl (80.0-105.0) 04/11/18 10:30 MCH 29.2 pg (25.0-35.0) 04/11/18 10:30 MCHC 32.7 g/dl (31.0-37.0) 04/11/18 10:30 RDW 14.4 % (11.5-14.5) 04/11/18 10:30 Plt Count 272 10^3/uL (120.0-450.0) 04/11/18 10:30 MPV 10.4 fl (7.0-11.0) 04/11/18 10:30 Gran % 61.1 % (50.0-68.0) 04/11/18 10:30 Lymph % (Auto) 27.0 % (22.0-35.0) 04/11/18 10:30 [place] % (Auto) 7.6 % (1.0-6.0) H 04/11/18 10:30 Eos % (Auto) 3.6 % (1.5-5.0) 04/11/18 10:30 Baso % (Auto) 0.7 % (0.0-3.0) 04/11/18 10:30 Gran # 4.20 (1.4-6.5) 04/11/18 10:30 Lymph # (Auto) 1.9 (1.2-3.4) 04/11/18 10:30 [place] # (Auto) 0.5 (0.1-0.6) 04/11/18 10:30 Eos # (Auto) 0.3 (0.0-0.7) 04/11/18 10:30 Baso # (Auto) 0.05 K/mm3 (0.0-2.0) 04/11/18 10:30 PT 17.7 SECONDS (9.4-12.5) H 04/07/18 13:50 INR 1.54 (0.93-1.08) H 04/07/18 13:50 APTT 51.0 Seconds (25.1-36.5) H 04/07/18 13:50 Sodium 144 mmol/L (132-148) 04/11/18 10:30 Potassium 4.0 mmol/L (3.6-5.0) 04/11/18 10:30 Chloride 102 mmol/L (98-107) 04/11/18 10:30 Carbon Dioxide 30 mmol/L (21-33) 04/11/18 10:30 Anion Gap 16 (10-20) 04/11/18 10:30 BUN 16 mg/dL (7-21) 04/11/18 10:30 Creatinine 1.1 mg/dl (0.7-1.2) 04/11/18 10:30 Est GFR ( Amer) 57 04/11/18 10:30 Est GFR (Non-Af Amer) 47 04/11/18 10:30 Random Glucose 97 mg/dL (70-110) 04/11/18 10:30 Calcium 10.3 mg/dL (8.4-10.5) 04/11/18 10:30 Phosphorus 2.9 mg/dL (2.5-4.5) 04/07/18 13:50 Magnesium 2.1 mg/dL (1.7-2.2) 04/07/18 13:50 Total Bilirubin 0.8 mg/dL (0.2-1.3) 04/11/18 10:30 AST 23 U/L (14-36) 04/11/18 10:30 ALT 28 U/L (7-56) 04/11/18 10:30 Alkaline Phosphatase 85 U/L (38-126) 04/11/18 10:30 Lactate Dehydrogenase 404 U/L (333-699) 04/05/18 16:06 Total Creatine Kinase 53 U/L (35-230) 04/05/18 16:06 Troponin I 0.25 ng/mL H* D 04/08/18 06:30 Total Protein 8.3 g/dL (5.8-8.3) 04/11/18 10:30 Albumin 4.4 g/dL (3.0-4.8) 04/11/18 10:30 Globulin 3.9 gm/dL 04/11/18 10:30 Albumin/Globulin Ratio 1.1 (1.1-1.8) 04/11/18 10:30 TSH 3rd Generation 2.15 mIU/mL (0.46-4.68) 04/07/18 05:30 Urine Color Straw (YELLOW) 04/08/18 07:04 Urine Appearance Clear (CLEAR) 04/08/18 07:04 Urine pH 6.0 (4.7-8.0) 04/08/18 07:04 Ur Specific [place] 1.025 (1.005-1.035) 04/08/18 07:04 Urine Protein 100 mg/dL (<30 mg/dL) H 04/08/18 07:04 Urine Glucose (UA) Negative mg/dL (NEGATIVE) 04/08/18 07:04 Urine Ketones Negative mg/dL (NEGATIVE) 04/08/18 07:04 Urine Blood Large (NEGATIVE) H 04/08/18 07:04 Urine Nitrate Negative (NEGATIVE) 04/08/18 07:04 Urine Bilirubin Negative (NEGATIVE) 04/08/18 07:04 Urine Urobilinogen 1.0 E.U./dL (<1 E.U./dL) H 04/08/18 07:04 Ur Leukocyte Esterase Moderate Dave/uL (NEGATIVE) H 04/08/18 07:04 Urine RBC Tntc /hpf (0-2) 04/08/18 07:04 Urine WBC Tntc /hpf (0-6) 04/08/18 07:04 Ur Epithelial Cells 4 - 5 /hpf (0-5) 04/08/18 07:04 Amorphous Sediment Moderate 04/08/18 07:04 Urine Bacteria Many (NEG) 04/08/18 07:04 Urine Other Uyeast 04/08/18 07:04 - Hospital Course Hospital Course: 87 year old female with a past medical history of hypertension, dementia, Atrial fibrillation, TIA, renal carcinoma(s/p nephrectomy), mitral regurgitation and hemorrhoids who was brought into the hospital with her son and daughter for multiple fall over the past two days. Per the daughter at bedside, the patient has had approximately six to seven fall over the past two days. She reports one being seen by the nurses aide and two other ones being seen by her brother. Per the son, the patient cannot stay still at home and will get up without assistance of her walker which she is supposed to use at home. Daughter denies any seizure like activity leading up the falls. ROS was limited due to the patient's current clinical condition. Past medical history: hypertension, dementia, atrial fibrillation, tia, renal carcinoma, mitral regurgitation Medications: Family member states she will bring in list of medications Allergies: Sulfa Past surgical hisotry: denies Social history: Denies. Lives with daughter. Nurses aid helps with ADL's. PMD: Dr. Hickman Geriatrics: Dr. Elizondo H&P information obtained by son and daughter at bedside. Hospital Course: Patient was seen and admitted to hospitalist service. While admitted the patient was seen by Neurology, Psychiatry, Physical therapy and Cardiology. Psychiatry visited her and adjusted her medications for behaviour modification. There was a Rapid response called on her while admitted due to her being unresponsive. Patient was stabilized and some of her psychiatric medications ( Seroquel) were discontinued. Overnight while admitted the patient did have a 2.7 pause on the ekg and dropped her heart rate into the 30's. Dr. La the ladies' locker room attendant was made aware and no new recommendations were given. Patient was found to have critical stenosis on her left ICA during her stay. After discussing with family it was decided to discontinue Pradaxa and start a baby aspirin instead since she was a fall risk. Patient was [facility] going [facility] however the family decided to sign their mother out AMA. Imagin. Chest xray:no active disease 2. Head Ct: no acute intracranial abnormalities 3.Pelvis xray:negative 4. Hand xray: negative 5. Chest w/o contrast: no suspicious pulmonary nodules, masses or infiltrates. small pericardial effusion 6. Carotid and Vertebral Duplex: Critical 80-99% proximal left ICA steonsis. 20- 39% percent proximal right ICA stenosis. Grade flow in both vertebral arteries. 7. Echo: mild concentric left ventricular hypertrophy, lv is normal , aortic valve is moderately calcified. Aortic sclerosis vs. mild , mild aortic regurgitation, mitral regurgitation is moderate, mild triuspid regurgitation, trace circumferential pericardial effusion 8. EKG: atrial flutter with variable AV block , left axis deviation, PPWP, NSSTW Patient signed out AMA. Discharge Exam - Head Exam Head Exam: ATRAUMATIC, NORMAL INSPECTION, NORMOCEPHALIC - Eye Exam Eye Exam: EOMI, Normal appearance, PERRL Pupil Exam: NORMAL ACCOMODATION, PERRL - ENT Exam ENT Exam: Mucous Membranes Moist, Normal Oropharynx - Respiratory Exam Respiratory Exam: Clear to PA & Lateral, NORMAL BREATHING PATTERN, UNREMARKABLE - Cardiovascular Exam Cardiovascular Exam: REGULAR RHYTHM, +S1, +S2 - Back Exam Back exam: NORMAL INSPECTION. absent: CVA tenderness (L), CVA tenderness (R), paraspinal tenderness - Neurological Exam Neurological exam: Alert, CN II-XII Intact, Oriented x3, Reflexes Normal - Psychiatric Exam Psychiatric exam: Normal Affect, Normal Mood - Skin Skin Exam: Dry Discharge Plan - Discharge Medications Prescriptions: ALPRAZolam [Xanax] 0.125 mg PO HS PRN #14 tab PRN Reason: Anxiety ALPRAZolam [Xanax] 0.125 mg PO BID PRN #14 tab PRN Reason: Anxiety Carbidopa/Levodopa 25/100 mg [Sinemet] 1 tab PO 0700,1200 #14 tab chlorproMAZINE [Thorazine] 10 mg PO HS PRN #14 tab PRN Reason: Agitation Citalopram [celeXA] 5 mg PO DAILY #14 tab - Follow Up Plan Condition: STABLE Disposition: AGAINST MEDICAL ADVICE Instructions: Dabigatran Etexilate, Alprazolam, Citalopram, Carbidopa and Levodopa Referrals: Connor Rizo MD [Primary Care Provider] - <Roslyn Davila - Last Filed: 04/13/18 18:47> Provider - Provider Date of Admission: 04/05/18 18:17 Attending physician: Roslyn Davila MD Primary care physician: Connor Rizo MD Hospital Course - Lab Results Lab Results: Micro Results 04/09/18 10:38 Urine Urine Culture - Final <10,000 CFU/ML. MULTIPLE SPECIES. PROBABLE CONTAMINATION. 04/05/18 18:48 Urine,Clean Catch Urine Culture - Final Corynebacterium Species Most Recent Lab Values WBC 6.9 10^3/ul (4.5-11.0) D 04/11/18 10:30 RBC 4.79 10^6/uL (3.5-6.1) 04/11/18 10:30 Hgb 14.0 g/dL (12.0-16.0) 04/11/18 10:30 Hct 42.8 % (36.0-48.0) 04/11/18 10:30 MCV 89.4 fl (80.0-105.0) 04/11/18 10:30 MCH 29.2 pg (25.0-35.0) 04/11/18 10:30 MCHC 32.7 g/dl (31.0-37.0) 04/11/18 10:30 RDW 14.4 % (11.5-14.5) 04/11/18 10:30 Plt Count 272 10^3/uL (120.0-450.0) 04/11/18 10:30 MPV 10.4 fl (7.0-11.0) 04/11/18 10:30 Gran % 61.1 % (50.0-68.0) 04/11/18 10:30 Lymph % (Auto) 27.0 % (22.0-35.0) 04/11/18 10:30 [place] % (Auto) 7.6 % (1.0-6.0) H 04/11/18 10:30 Eos % (Auto) 3.6 % (1.5-5.0) 04/11/18 10:30 Baso % (Auto) 0.7 % (0.0-3.0) 04/11/18 10:30 Gran # 4.20 (1.4-6.5) 04/11/18 10:30 Lymph # (Auto) 1.9 (1.2-3.4) 04/11/18 10:30 [place] # (Auto) 0.5 (0.1-0.6) 04/11/18 10:30 Eos # (Auto) 0.3 (0.0-0.7) 04/11/18 10:30 Baso # (Auto) 0.05 K/mm3 (0.0-2.0) 04/11/18 10:30 PT 17.7 SECONDS (9.4-12.5) H 04/07/18 13:50 INR 1.54 (0.93-1.08) H 04/07/18 13:50 APTT 51.0 Seconds (25.1-36.5) H 04/07/18 13:50 Sodium 144 mmol/L (132-148) 04/11/18 10:30 Potassium 4.0 mmol/L (3.6-5.0) 04/11/18 10:30 Chloride 102 mmol/L (98-107) 04/11/18 10:30 Carbon Dioxide 30 mmol/L (21-33) 04/11/18 10:30 Anion Gap 16 (10-20) 04/11/18 10:30 BUN 16 mg/dL (7-21) 04/11/18 10:30 Creatinine 1.1 mg/dl (0.7-1.2) 04/11/18 10:30 Est GFR ( Amer) 57 04/11/18 10:30 Est GFR (Non-Af Amer) 47 04/11/18 10:30 Random Glucose 97 mg/dL (70-110) 04/11/18 10:30 Calcium 10.3 mg/dL (8.4-10.5) 04/11/18 10:30 Phosphorus 2.9 mg/dL (2.5-4.5) 04/07/18 13:50 Magnesium 2.1 mg/dL (1.7-2.2) 04/07/18 13:50 Total Bilirubin 0.8 mg/dL (0.2-1.3) 04/11/18 10:30 AST 23 U/L (14-36) 04/11/18 10:30 ALT 28 U/L (7-56) 04/11/18 10:30 Alkaline Phosphatase 85 U/L (38-126) 04/11/18 10:30 Lactate Dehydrogenase 404 U/L (333-699) 04/05/18 16:06 Total Creatine Kinase 53 U/L (35-230) 04/05/18 16:06 Troponin I 0.25 ng/mL H* D 04/08/18 06:30 Total Protein 8.3 g/dL (5.8-8.3) 04/11/18 10:30 Albumin 4.4 g/dL (3.0-4.8) 04/11/18 10:30 Globulin 3.9 gm/dL 04/11/18 10:30 Albumin/Globulin Ratio 1.1 (1.1-1.8) 04/11/18 10:30 TSH 3rd Generation 2.15 mIU/mL (0.46-4.68) 04/07/18 05:30 Urine Color Straw (YELLOW) 04/08/18 07:04 Urine Appearance Clear (CLEAR) 04/08/18 07:04 Urine pH 6.0 (4.7-8.0) 04/08/18 07:04 Ur Specific [place] 1.025 (1.005-1.035) 04/08/18 07:04 Urine Protein 100 mg/dL (<30 mg/dL) H 04/08/18 07:04 Urine Glucose (UA) Negative mg/dL (NEGATIVE) 04/08/18 07:04 Urine Ketones Negative mg/dL (NEGATIVE) 04/08/18 07:04 Urine Blood Large (NEGATIVE) H 04/08/18 07:04 Urine Nitrate Negative (NEGATIVE) 04/08/18 07:04 Urine Bilirubin Negative (NEGATIVE) 04/08/18 07:04 Urine Urobilinogen 1.0 E.U./dL (<1 E.U./dL) H 04/08/18 07:04 Ur Leukocyte Esterase Moderate Dave/uL (NEGATIVE) H 04/08/18 07:04 Urine RBC Tntc /hpf (0-2) 04/08/18 07:04 Urine WBC Tntc /hpf (0-6) 04/08/18 07:04 Ur Epithelial Cells 4 - 5 /hpf (0-5) 04/08/18 07:04 Amorphous Sediment Moderate 04/08/18 07:04 Urine Bacteria Many (NEG) 04/08/18 07:04 Urine Other Uyeast 04/08/18 07:04 Attending/Attestation - Attestation I have personally seen and examined this patient.: Yes I have fully participated in the care of the patient.: Yes I have reviewed all pertinent clinical information, including history, physical exam and plan: Yes Notes (Text): 04/13/18 18:46 attending note; Patient seen and examined with resident. Patient's son by the bedside. Patient is off one-to-one observation. Patient is calm. Not agitated. Does not appear to be in any acute distress. Patient is a 87 year old female with a past medical history of renal cell carcinoma, hypertension, dementia, atrial fibrillation, mitral regurgitation and TIA is admitted for multiple falls. x-rays negative. Patient with a history of dementia. Currently with sundowning with agitation at nighttime. Cardiology and neurology evaluation appreciated. Mechanical Oxidizer recommended to discontinue pradaxa upon discharge. Carotid stenosis; started on aspirin. Upon discharge patient will follow-up with Dr. Benjamin. Currently agreed with conservative management. Agitation; behavioral changes due to dementia. Psychiatric evaluation appreciated. Continue Xanax, Celexa and Thorazine. Case discussed Patient's son in detail. social worker masters evaluation Appreciated for discharge planning. Patient's family signed AGAINST MEDICAL ADVICE. Upon discharge the patient will follow-up with PMD Dr. Rizo.
--- NOTE | 2018-04-13 23:43 | PN ---
DATE: FOLLOWUP NOTE SUBJECTIVE: In short, the patient is 87 years old with diagnosed history of dementia. The patient was admitted on the medical side for evaluation of frequent falls. Psych consult was called for evaluation of change in mental status. The patient was seen and examined for the past couple of days. Medications were adjusted. Treatment plan was discussed with the family in details. The patient deemed tolerating Xanax 0.125 mg three times a day well. This resume writer implemented Thorazine 10 mg at the nighttime as needed for agitation and possible change in mental status and sun downing. This treatment plan was discussed with the patient's family in details including the patient's son who is in the next to the patient on daily basis. The patient was followed up today. The patient presented very comfortable. There is no signs of agitation or aggression. The patient seems to be pleasantly confused, but smiling back to this resume writer, socially appropriate, sometimes the patient confabulates, which is expected. The patient is currently on one to one. There is no agitation or aggression or psychosis was observed by this resume writer, but as per family, yesterday the patient had episodes of confusion, majority of the time this is at 04:00 p.m. "". As per the patient's son Miguel Angel [phone], this is not new for the patient, but patient's family goal is for the patient to be stabilized on the medications and being more manageable at home, but this resume writer will repeat herself that the patient does not have any agitation or aggression observed by this resume writer. The patient is compliant with the medication, has good appetite and sleep. The patient does not remember what she ate in the morning time, but remember enjoyed her meal. Vital signs seems to be stable. Labs reviewed. MENTAL STATUS EXAMINATION: The patient presented to be alert, pleasant, very confused. Fair eye contact. Speech was underproductive. Mood described as "I feel fine, I feel cheerful today, you improved my mood". Thought process seems to be circumstantial, at times the patient confabulates. Thought content: there is no agitation or aggression. There is no psychotic symptoms observed by this resume writer, but the patient has episodes of confusion and restless behavior majority of the time, this is at the evening time. Insight and judgment seems to be impaired due to Alzheimer's dementia. Impulses are well controlled at present moment. IMPRESSION: Alzheimer's dementia, rule out Alzheimer's dementia with behavioral disturbances, rule out delirium on dementia which seems to be combination of dementia and delirium. PLAN: Xanax 0.125 mg three times a day scheduled as well as Thorazine 10 mg at the nighttime scheduled with benefits and alternatives discussed with the patient as well as with the patient's family. This case was discussed in details with the primary team including Dr. Davila. As per medical team, the patient's family seems to be unsatisfied with the treatment plan and care of the pt. Pt's family wanted to take the patient to Alzheimer's specialist, which is the pt's family right. Thank you very much for letting me participate in care of your patient. Should you have any questions give me a call back. Edie Gottlieb MD [email or web address]
== END 2018-04-13 15:00 | disposition left against medical advice (07) | DRG 690 ==
LOC: ED 14:48 → ERH 18:17 → 2RNO 04-06 01:05 → 3RSO 04-12 13:52
PROVIDERS: ADMIT Internal Medicine; ATTEND Internal Medicine
DX: N39.0 Urinary tract infection, site not specified (principal); F05 Delirium due to known physiological condition; I65.22 Occlusion and stenosis of left carotid artery; I48.92 Unspecified atrial flutter; G30.9 Alzheimer's disease, unspecified; F02.80 Dementia in other diseases classified elsewhere, unspecified severity, without behavioral disturbance, psychotic disturbance, mood disturbance, and anxiety; R29.6 Repeated falls; S09.90XA Unspecified injury of head, initial encounter; I48.2 Chronic atrial fibrillation; N32.81 Overactive bladder; K64.9 Unspecified hemorrhoids; I10 Essential (primary) hypertension; Z66 Do not resuscitate; I08.3 Combined rheumatic disorders of mitral, aortic and tricuspid valves; W19.XXXA Unspecified fall, initial encounter; Y92.009 Unspecified place in unspecified non-institutional (private) residence as the place of occurrence of the external cause; Z85.528 Personal history of other malignant neoplasm of kidney; Z90.5 Acquired absence of kidney; Z86.73 Personal history of transient ischemic attack (TIA), and cerebral infarction without residual deficits; Z91.81 History of falling; Z87.891 Personal history of nicotine dependence